=== PATIENT | male | born 1965 | race Caucasian/White ===

== ENCOUNTER 2018-01-13 16:18 | Inpatient (IN) | payer OTHER, SELFPAY ==
[2018-01-13] VITALS (13 sets, daily range): BP systolic 126–164; BP diastolic 58–97; PULSE 72–787; RESP 13–23; TEMP 36.2–37.1; O2SAT 2–100; BMI 25.8; BMI 27.5
--- NOTE | 2018-01-13 16:26 | DI.RAD.S_ITS ---
PROCEDURE: XR CHEST 2V INDICATIONS: chest pain short of breath TECHNIQUE: 2 views of the chest were acquired. COMPARISON: None. FINDINGS: Surgical changes and devices: None. Lungs and pleura: There are low lung volumes. Elevation of the diaphragms appears to be present, which may be related to expiratory technique. Fluid level is seen within the stomach. There is interstitial prominence identified within the lung bases. No lobar consolidation, large effusion, or pneumothorax is evident. Mediastinum: Mediastinal contours are normal. Heart size is normal. Bones and chest wall: No suspicious bony abnormalities. Degenerative changes of the spine are not well characterized. Soft tissues appear unremarkable. IMPRESSION: Mild basilar atelectasis. Superimposed pneumonia is felt to be less likely, but cannot be completely excluded. Dictated by: Daniel Dang M.D. on 01/13/2018 at 15:48 Approved by: Daniel Dang M.D. on 01/13/2018 at 15:52
[2018-01-13 16:50] LABS: Add Manual Diff / Slide Review NO; Basophils Percent Auto 1.3 % (0-2); Eosinophils Percent Auto 3.5 % (2-4); Hematocrit 46.8 % (41-53); Hemoglobin 15.7 g/dL (13.5-17.5); INR 0.9 (0.9-1.3); Lymphocytes Percent Auto 32.1 % (25-40); Mean Corpuscular HGB Conc 33.6 % (30-36); Mean Corpuscular Hemoglobin 30.4 PG (26-34); Mean Corpuscular Volume 90.4 fL (80-100); Neutrophils Absolute Auto 5900 /uL (3000-5900); Neutrophils Percent Auto 55.1 % (50-75); Platelet Count 261 X10^3/uL (150-400); Red Blood Cell Count 5.17 X10^6/uL (4.5-5.9); Red Cell Distribution Width 13.2 % (11.6-14.8); White Blood Cell Count 10.6 X10^3/uL (4.5-11.0)
[2018-01-13 16:53] LABS: PTT Partial Thromboplastin Tim 33 SECONDS (26.4-36.2)
--- NOTE | 2018-01-13 17:02 | ED.CHESTPAIN ---
HPI - Chest Pain General Chief Complaint: Chest Pain Stated Complaint: SOB w/ Chest Pain Time Seen by Provider: 01/13/18 16:25 Source: patient and EMS Mode of arrival: EMS Limitations: no limitations History of Present Illness HPI narrative: Patient is a 52-year-old male who presents with on chest pain and shortness of breath since a.m. this morning. It is constant nonradiating. He feels a lot of pressure in his chest. Is obviously diaphoretic. He denies any productive cough. They are visiting from all organ. He was recently evaluated by a doctor concerned that he may have prostate cancer sounds does PSA elevated but still being worked up. He does not have chest pain any more. MD complaint: chest pain Related Data Home Medications Medication Instructions Recorded Confirmed gabapentin 01/13/18 Allergies Allergy/AdvReac Type Severity Reaction Status Date / Time No Known Drug Allergies Allergy Verified 01/13/18 17:17 PFSH Medical History Chronic back pain (Acute) HTN (hypertension) (Acute) Kidney stone (Acute) Prostate cancer (Acute) Family History Other Heart attack High blood cholesterol Hypertension Social History household members: family Smoking Status: Current every day smoker alcohol intake: never Exam Initial Vital Signs Initial Vital Signs: Vital Signs Temperature 98.1 F 01/13/18 16:26 Pulse Rate 79 01/13/18 16:26 Respiratory Rate 15 01/13/18 16:26 Blood Pressure 152/83 H 01/13/18 16:26 Pulse Oximetry 96 01/13/18 16:26 Const General: cooperative, comfortable, in distress and diaphoretic Nutritional Appearance: average body habitus Other: [facility] Head: normocephalic and atraumatic Ears: external ears normal and TM's normal bilaterally Nose: external nose normal and No nasal discharge Face and sinus: sinuses nontender, face symmetric, no sinus tenderness and No dry mucous membranes Mouth: oral mucosae normal and moist mucous membranes Teeth and gingiva: dentition normal Throat: tonsils normal and uvula midline Resp Effort & Inspection: normal respiratory effort, able to speak in complete sentences, no respiratory distress and no use of accessory muscles Auscultation: clear to auscultation bilaterally, no rales, no rhonchi and no wheezes Cardio Rate: regular rate Rhythm: regular rhythm Heart Sounds: no click, no gallops, no murmurs and no rubs Pulses: normal peripheral pulses GI Inspection: non-distended Palpation: soft, no hepatosplenomegaly, No guarding, No pulsatile mass and No tender Auscultation: normal bowel sounds Skin General: no rashes or lesions noted, No jaundice and No petechiae Neuro General: alert, oriented x3, gait normal and no focal motor deficits Speech: speech normal Course Orders Ordered: ED Orders 01/13/18 16:15 B Type Natriuretic Peptide Stat Complete Blood Count AUTO DIFF Stat Comprehensive Metabolic Panel Stat D Dimer Stat Lipase Stat Partial Thromboplastin Time Stat Prothrombin Time INR Stat Troponin with CK Cardiac Panel Stat 01/13/18 16:25 EKG-12 Lead Stat 01/13/18 16:26 XR chest 2V Stat 01/13/18 17:38 EKG-12 Lead Stat 01/13/18 18:34 Education, smoking cessation ONGOING 01/13/18 18:45 Troponin I Q8H 01/14/18 02:45 Troponin I Q8H Acetaminophen (Tylenol) 650 mg PO Q4HR FRANCESCA Aspirin (Aspirin Ec) 325 mg PO DAILY [facility] Sodium Chloride (Normal Saline 0.9%) 1,000 mls @ 150 mls/hr IV CONT FRANCESCA Last Admin: 01/13/18 17:15 Dose: 150 mls/hr Morphine Sulfate (Morphine) 2 mg IV Q5MIN PRN PRN Reason: Chest Pain Nitroglycerin (Nitrostat) 0.4 mg SL [id number] PRN PRN Reason: Chest Pain Last Admin: 01/13/18 17:29 Dose: 0.4 mg Admin: 01/13/18 17:24 Dose: 0.4 mg Nitroglycerin (Nitrostat) 0.4 mg SL [id number] PRN PRN Reason: Chest Pain Discontinued Medications Albuterol/Ipratropium (Duoneb) 3 ml INH NOW ONE Stop: 01/13/18 17:05 Last Admin: 01/13/18 17:45 Dose: 3 ml Aspirin (Aspirin Chew) 324 mg PO NOW ONE Stop: 01/13/18 16:26 Last Admin: 01/13/18 16:30 Dose: Not Given Vital Signs - 8 hr 01/13/18 16:26 01/13/18 17:10 01/13/18 17:24 Temperature 98.1 F Pulse Rate 79 81 91 H Respiratory Rate 15 20 Blood Pressure 152/83 H 135/82 H Blood Pressure [Left Arm] 135/82 H Pulse Oximetry 96 100 01/13/18 17:29 01/13/18 17:42 01/13/18 17:46 Temperature Pulse Rate 85 81 80 Respiratory Rate 18 23 Blood Pressure 145/89 H Blood Pressure [Left Arm] 126/91 H Pulse Oximetry 2 L 97 01/13/18 18:03 Temperature Pulse Rate 75 Respiratory Rate 13 Blood Pressure Blood Pressure [Left Arm] 144/97 H Pulse Oximetry 98 MDM - Chest Pain Lab Data Result diagrams: 01/13/18 16:15 01/13/18 16:15 Lab Results 01/13/18 01/13/18 01/13/18 Range/Units 16:15 16:15 16:15 WBC 10.6 (4.5-11.0) X10^3/uL RBC 5.17 (4.5-5.9) X10^6/uL Hgb 15.7 (13.5-17.5) g/dL Hct 46.8 (41-53) % MCV 90.4 (80-100) fL MCH 30.4 (26-34) PG MCHC 33.6 (30-36) % RDW 13.2 (11.6-14.8) % Plt Count 261 (150-400) X10^3/uL Neut % (Auto) 55.1 (50-75) % Lymph % (Auto) 32.1 (25-40) % Garrett % (Auto) 8.0 (3-14) % Eos % (Auto) 3.5 (2-4) % Baso % (Auto) 1.3 (0-2) % Neut # (Auto) 5900 (0995-9584) /uL PT 10.0 L (10.1-12.7) SECONDS INR 0.9 (0.9-1.3) APTT 33 (26.4-36.2) SECONDS D-Dimer (<230) ng/mL Sodium 142 (137-145) mmol/L Potassium 3.5 (3.4-5.1) mmol/L Chloride 103 (98-107) mmol/L Carbon Dioxide 27 (22-32) mmol/L BUN 19 (9-20) mg/dL Creatinine 0.80 (0.66-1.25) mg/dL Estimated GFR > 60.0 (>60) mL/min BUN/Creatinine Ratio 23.8 H (6-22) Glucose 76 (70-100) mg/dL Calcium 9.5 (8.4-10.2) mg/dL Total Bilirubin 0.5 (0.2-1.3) mg/dL AST 29 (17-59) IU/L ALT 24 (21-72) IU/L Alkaline Phosphatase 63 (38-126) U/L Total Creatine Kinase 54 L (55-170) U/L Troponin I < 0.012 (0.01-0.034) ng/mL B-Natriuretic Peptide 29.3 (<100) Total Protein 7.2 (6.3-8.2) g/dL Albumin 4.1 (3.5-5.0) g/dL Globulin 3.1 (1.7-4.1) g/dL Albumin/Globulin Ratio 1.3 (1.0-2.8) Lipase 419 H (23-300) U/L 01/13/18 Range/Units 16:15 WBC (4.5-11.0) X10^3/uL RBC (4.5-5.9) X10^6/uL Hgb (13.5-17.5) g/dL Hct (41-53) % MCV (80-100) fL MCH (26-34) PG MCHC (30-36) % RDW (11.6-14.8) % Plt Count (150-400) X10^3/uL Neut % (Auto) (50-75) % Lymph % (Auto) (25-40) % Garrett % (Auto) (3-14) % Eos % (Auto) (2-4) % Baso % (Auto) (0-2) % Neut # (Auto) (7830-5874) /uL PT (10.1-12.7) SECONDS INR (0.9-1.3) APTT (26.4-36.2) SECONDS D-Dimer < 200 (<230) ng/mL Sodium (137-145) mmol/L Potassium (3.4-5.1) mmol/L Chloride (98-107) mmol/L Carbon Dioxide (22-32) mmol/L BUN (9-20) mg/dL Creatinine (0.66-1.25) mg/dL Estimated GFR (>60) mL/min BUN/Creatinine Ratio (6-22) Glucose (70-100) mg/dL Calcium (8.4-10.2) mg/dL Total Bilirubin (0.2-1.3) mg/dL AST (17-59) IU/L ALT (21-72) IU/L Alkaline Phosphatase (38-126) U/L Total Creatine Kinase (55-170) U/L Troponin I (0.01-0.034) ng/mL B-Natriuretic Peptide (<100) Total Protein (6.3-8.2) g/dL Albumin (3.5-5.0) g/dL Globulin (1.7-4.1) g/dL Albumin/Globulin Ratio (1.0-2.8) Lipase (23-300) U/L Imaging Data Chest x-ray: Radiologist's impression: PROCEDURE: XR CHEST 2V INDICATIONS: chest pain short of breath TECHNIQUE: 2 views of the chest were acquired. COMPARISON: None. FINDINGS: Surgical changes and devices: None. Lungs and pleura: There are low lung volumes. Elevation of the diaphragms appears to be present, which may be related to expiratory technique. Fluid level is seen within the stomach. There is interstitial prominence identified within the lung bases. No lobar consolidation, large effusion, or pneumothorax is evident. Mediastinum: Mediastinal contours are normal. Heart size is normal. Bones and chest wall: No suspicious bony abnormalities. Degenerative changes of the spine are not well characterized. Soft tissues appear unremarkable. IMPRESSION: Mild basilar atelectasis. Superimposed pneumonia is felt to be less likely, but cannot be completely excluded. Dictated by: Daniel Dang M.D. on 01/13/2018 at 15:48 Approved by: Daniel Dang M.D. on 01/13/2018 at 15:52 ECG Data Attestation: I personally reviewed and interpreted this ECG as follows: Prior ECG tracings: not available for review Interpretation: EKG 1.: Normal sinus rhythm rate 77 and Q-wave noted in lead 3 and AVF no priors to compare no ST changes EKG 2. Sinus rhythm rate 76 similar to prior is MDM Narrative Medical decision making narrative: Patient initially a of quite diaphoretic with concerning chest pain. He had recurrence of chest pain in the ED was given nitroglycerin 2 in fact which improved his chest pain. He also significant family history both mom and dad are from heart attack before the age of 60. The patient will be placed in observation for further testing. Dr. Villeda has happily accepted and in ED to evaluate Negative D-dimer no definitive diagnosis of cancer of he is not hypoxic. No syncopal episode Discharge Plan Departure Patient Disposition: Admitted As Inpatient Discharge Date/Time: 01/13/18 18:45 Interventions: ED Discharge Assessment Last Done: 01/13/18 18:27 Admit Date/Time: 01/13/18 18:29 Admit Provider: Al Villeda V
[2018-01-13] MEDS: SODIUM CHLORIDE 0.9% 1,000 ML 150 ML IV (17:15)
[2018-01-13] MEDS: NITROGLYCERIN 0.4 MG SL TAB SL ×4 (17:24→22:57)
--- NOTE | 2018-01-13 17:24 | PC.NURSE ---
pt had a sudden onset of chest pain, woke him from sleeping about an 8/10 dr lynne notified, verbal order for nitro.
[2018-01-13 17:29] LABS: Alanine Aminotransferase 24 IU/L (21-72); Albumin 4.1 g/dL (3.5-5.0); Albumin Globulin Ratio 1.3 (1.0-2.8); Alkaline Phosphatase 63 U/L (38-126); Aspartate Aminotransferase 29 IU/L (17-59); BUN Creatinine Ratio 23.8 (6-22); Bilirubin Total 0.5 mg/dL (0.2-1.3); Blood Urea Nitrogen 19 mg/dL (9-20); Calcium 9.5 mg/dL (8.4-10.2); Carbon Dioxide 27 mmol/L (22-32); Chloride 103 mmol/L (98-107); Creatine Kinase 54 U/L (55-170); Estimated Glomerular Filt Rate > 60.0 mL/min (>60); Globulin 3.1 g/dL (1.7-4.1); Glucose 76 mg/dL (70-100); HEMOLYSIS 20 (0-50); Lipase 419 U/L (23-300); Potassium 3.5 mmol/L (3.4-5.1); Sodium 142 mmol/L (137-145); Total Protein 7.2 g/dL (6.3-8.2)
[2018-01-13 17:37] LABS: B Type Natriuretic Peptide 29.3 (<100)
[2018-01-13 17:41] LABS: Troponin I < 0.012 ng/mL (0.01-0.034)
[2018-01-13] MEDS: ALBUTEROL/IPRATROPIUM 3 ML AMPUL INH (17:45)
[2018-01-13 18:03] LABS: D Dimer < 200 ng/mL (<230)
--- NOTE | 2018-01-13 18:23 | PM.HP.1 ---
History of Present Illness Date Patient Seen: 01/13/18 Time Patient Seen: 18:10 Chief complaint: SOB w/ Chest Pain Narrative: The patient states that he woke up this morning with 10/10 central chest pressure with associated shortness of breath and diaphoresis, lasting several hours, and worsening prompting emergency department visit today. He has never had similar symptoms though he states over the past few months he has had progressive shortness of breath with exertion. He has been told his PSA is elevated at 7.5 and has an outpatient urologic appointment scheduled in January. He has also been told he is anemic with an elevated white blood count (not apparent on admission labs today). Cardiac risk factors include ongoing tobacco use, very positive family history and undiagnosed hypertension noted in the emergency department with LVH by EKG. 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 He lives with a daughter locally. He smokes a 3rd of a pack of cigarettes daily and denies alcohol use. He smokes marijuana occasionally and denies drug use. Family history: His father developed coronary disease at age 40, having 3 more heart attacks and a stroke, dying at age 73 of skin cancer. His mother in her 80s of stomach cancer though developed coronary artery disease at age 55. Patient History Medical History Prostate cancer (Acute) Family & Social History Safety & Behavioral: Feels Safe in Current Yes Environment Tobacco & Substance use: Smoking Status Current every day smoker alcohol intake frequency 0-2 drinks per day Substance Use Type does not use Meds Home Medications Medication Instructions Recorded Confirmed Type No Known Home Medications 01/13/18 01/13/18 History Allergies Allergy/AdvReac Type Severity Reaction Status Date / Time No Known Drug Allergies Allergy Verified 01/13/18 17:17 Review of Systems Review of Systems All systems reviewed & are unremarkable except as noted in HPI and below Exam Vital Signs (past 8 hours): Vital Signs - 8 hr 01/13/18 16:26 01/13/18 17:10 01/13/18 17:24 Temperature 98.1 F Pulse Rate 79 81 91 H Respiratory Rate 15 20 Blood Pressure 152/83 H 135/82 H Blood Pressure [Left Arm] 135/82 H Pulse Oximetry 96 100 01/13/18 17:29 01/13/18 17:42 01/13/18 17:46 Temperature Pulse Rate 85 81 80 Respiratory Rate 18 23 Blood Pressure 145/89 H Blood Pressure [Left Arm] 126/91 H Pulse Oximetry 2 L 97 01/13/18 18:03 Temperature Pulse Rate 75 Respiratory Rate 13 Blood Pressure Blood Pressure [Left Arm] 144/97 H Pulse Oximetry 98 Pulse Oximetry 98 Oxygen Delivery Method Nasal Cannula Oxygen Flow Rate 2 Narrative Exam Narrative: General: Pleasant male, appears older than stated age, in no apparent distress HEENT: Pupils equal round reactive, extraocular movements intact Neck: Supple Lungs: Clear to auscultation Cardiac: Regular rate and rhythm without appreciable murmur Abdomen: Soft, nontender, nondistended Extremities: Without edema Neurologic: Alert, oriented, full upper and lower motor strength, normal sensation, no focal deficits Dermatologic: No rash or skin lesions Objective Imaging Chest x-ray: Radiologist's impression: Mild basilar atelectasis. Superimposed pneumonia is felt to be less likely, but cannot be completely excluded. Labs Result Diagrams: 01/13/18 16:15 01/13/18 16:15 Labs: Laboratory Results - last 24 hr 01/13/18 01/13/18 01/13/18 16:15 16:15 16:15 WBC 10.6 RBC 5.17 Hgb 15.7 Hct 46.8 MCV 90.4 MCH 30.4 MCHC 33.6 RDW 13.2 Plt Count 261 Neut % (Auto) 55.1 Lymph % (Auto) 32.1 Hitchcock % (Auto) 8.0 Eos % (Auto) 3.5 Baso % (Auto) 1.3 Neut # (Auto) 5900 PT 10.0 L INR 0.9 APTT 33 D-Dimer Sodium 142 Potassium 3.5 Chloride 103 Carbon Dioxide 27 BUN 19 Creatinine 0.80 Estimated GFR > 60.0 BUN/Creatinine Ratio 23.8 H Glucose 76 Calcium 9.5 Total Bilirubin 0.5 AST 29 ALT 24 Alkaline Phosphatase 63 Total Creatine Kinase 54 L Troponin I < 0.012 B-Natriuretic Peptide 29.3 Total Protein 7.2 Albumin 4.1 Globulin 3.1 Albumin/Globulin Ratio 1.3 Lipase 419 H 01/13/18 16:15 WBC RBC Hgb Hct MCV MCH MCHC RDW Plt Count Neut % (Auto) Lymph % (Auto) Hitchcock % (Auto) Eos % (Auto) Baso % (Auto) Neut # (Auto) PT INR APTT D-Dimer < 200 Sodium Potassium Chloride Carbon Dioxide BUN Creatinine Estimated GFR BUN/Creatinine Ratio Glucose Calcium Total Bilirubin AST ALT Alkaline Phosphatase Total Creatine Kinase Troponin I B-Natriuretic Peptide Total Protein Albumin Globulin Albumin/Globulin Ratio Lipase Assessment & Plan Plan: Assessment/Plan Narrative: 1. Chest pain. Rule out coronary artery disease, noting significant positive family history. Admit to telemetry, observation, monitor serial cardiac enzymes, and obtain stress testing tomorrow if unrevealing. Otherwise, consider Cardiology consultation as indicated. Check lipids. 2. Chronic tobacco use. Smoking cessation is advised. 3. Hypertension with left ventricular hypertrophy. Monitor and address prior to discharge pending above evaluation. 4. Elevated PSA. Outpatient evaluation pending for evaluation of possible prostate cancer. 5. Disposition: Admit to observation status. 6. Code status: Full
--- NOTE | 2018-01-13 18:33 | P.HP_ITS ---
History of Present Illness Date Patient Seen: 01/13/18 Time Patient Seen: 18:10 Chief complaint: SOB w/ Chest Pain Narrative: The patient states that he woke up this morning with 10/10 central chest pressure with associated shortness of breath and diaphoresis, lasting several hours, and worsening prompting emergency department visit today. He has never had similar symptoms though he states over the past few months he has had progressive shortness of breath with exertion. He has been told his PSA is elevated at 7.5 and has an outpatient urologic appointment scheduled in January. He has also been told he is anemic with an elevated white blood count (not apparent on admission labs today). Cardiac risk factors include ongoing tobacco use, very positive family history and undiagnosed hypertension noted in the emergency department with LVH by EKG. 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 He lives with a daughter locally. He smokes a 3rd of a pack of cigarettes daily and denies alcohol use. He smokes marijuana occasionally and denies drug use. Family history: His father developed coronary disease at age 40, having 3 more heart attacks and a stroke, dying at age 73 of skin cancer. His mother in her 80s of stomach cancer though developed coronary artery disease at age 55. Patient History Medical History Prostate cancer (Acute) Family & Social History Safety & Behavioral: Feels Safe in Current Yes Environment Tobacco & Substance use: Smoking Status Current every day smoker alcohol intake frequency 0-2 drinks per day Substance Use Type does not use Meds Home Medications Medication Instructions Recorded Confirmed Type No Known Home Medications 01/13/18 01/13/18 History Allergies Allergy/AdvReac Type Severity Reaction Status Date / Time No Known Drug Allergies Allergy Verified 01/13/18 17:17 Review of Systems Review of Systems All systems reviewed & are unremarkable except as noted in HPI and below Exam Vital Signs (past 8 hours): Vital Signs - 8 hr 3 01/13/18 16:26 01/13/18 17:10 01/13/18 17:24 Temperature 98.1 F Pulse Rate 79 81 91 H Respiratory Rate 15 20 Blood Pressure 152/83 H 135/82 H Blood Pressure [Left Arm] 135/82 H Pulse Oximetry 96 100 3 01/13/18 17:29 01/13/18 17:42 01/13/18 17:46 Temperature Pulse Rate 85 81 80 Respiratory Rate 18 23 Blood Pressure 145/89 H Blood Pressure [Left Arm] 126/91 H Pulse Oximetry 2 L 97 3 01/13/18 18:03 Temperature Pulse Rate 75 Respiratory Rate 13 Blood Pressure Blood Pressure [Left Arm] 144/97 H Pulse Oximetry 98 Pulse Oximetry 98 Oxygen Delivery Method Nasal Cannula Oxygen Flow Rate 2 Narrative Exam Narrative: General: Pleasant male, appears older than stated age , in no apparent distress HEENT: Pupils equal round reactive, extraocular movements intact Neck: Supple Lungs: Clear to auscultation Cardiac: Regular rate and rhythm without appreciable murmur Abdomen: Soft, nontender, nondistended Extremities: Without edema Neurologic: Alert, oriented, full upper and lower motor strength, normal sensation, no focal deficits Dermatologic: No rash or skin lesions Objective Imaging Chest x-ray: Radiologist's impression: Mild basilar atelectasis. Superimposed pneumonia is felt to be less likely, but cannot be completely excluded. Labs Result Diagrams: 01/13/18 16:15 01/13/18 16:15 Labs: Laboratory Results - last 24 hr 01/13/18 01/13/18 01/13/18 16:15 16:15 16:15 WBC 10.6 RBC 5.17 Hgb 15.7 Hct 46.8 MCV 90.4 MCH 30.4 MCHC 33.6 RDW 13.2 Plt Count 261 Neut % (Auto) 55.1 Lymph % (Auto) 32.1 Nash % (Auto) 8.0 Eos % (Auto) 3.5 Baso % (Auto) 1.3 Neut # (Auto) 5900 PT 10.0 L INR 0.9 APTT 33 D-Dimer Sodium 142 Potassium 3.5 Chloride 103 Carbon Dioxide 27 BUN 19 Creatinine 0.80 Estimated GFR > 60.0 BUN/Creatinine Ratio 23.8 H Glucose 76 Calcium 9.5 Total Bilirubin 0.5 AST 29 ALT 24 Alkaline Phosphatase 63 Total Creatine Kinase 54 L Troponin I < 0.012 B-Natriuretic Peptide 29.3 Total Protein 7.2 Albumin 4.1 Globulin 3.1 Albumin/Globulin Ratio 1.3 Lipase 419 H 01/13/18 16:15 WBC RBC Hgb Hct MCV MCH MCHC RDW Plt Count Neut % (Auto) Lymph % (Auto) Nash % (Auto) Eos % (Auto) Baso % (Auto) Neut # (Auto) PT INR APTT D-Dimer < 200 Sodium Potassium Chloride Carbon Dioxide BUN Creatinine Estimated GFR BUN/Creatinine Ratio Glucose Calcium Total Bilirubin AST ALT Alkaline Phosphatase Total Creatine Kinase Troponin I B-Natriuretic Peptide Total Protein Albumin Globulin Albumin/Globulin Ratio Lipase Assessment & Plan Plan: Assessment/Plan Narrative: 1. Chest pain. Rule out coronary artery disease, noting significant positive family history. Admit to telemetry, observation, monitor serial cardiac enzymes , and obtain stress testing tomorrow if unrevealing. Otherwise, consider Cardiology consultation as indicated. Check lipids. 2. Chronic tobacco use. Smoking cessation is advised. 3. Hypertension with left ventricular hypertrophy. Monitor and address prior to discharge pending above evaluation. 4. Elevated PSA. Outpatient evaluation pending for evaluation of possible prostate cancer. 5. Disposition: Admit to observation status. 6. Code status: Full
--- NOTE | 2018-01-13 18:55 | PC.NURSE ---
Pt admitted to [facility]. A/O. DENIES ANY CHEST PAIN. TELE ON/ICU NOTIFIED TO MONITOR. DAUGHTER PRESENT AT BEDSIDE AND BROUGHT IN GLASSES/PHONE. PT NORMALLY WEARS TOP/BOTTOM DENTURES, BUT DID NOT BRING THEM IN TODAY. ADVANCE DIRECTIVE PAMPHLET AT BEDSIDE. ORIENTED TO ROOM/CALL LIGHT. INFORMED PT TO CALL PRIOR TO GETTING OUT OF BED SINCE NEW MEDS WERE GIVEN IN ER. PT VERBALLY CONFIRMS UNDERSTANDING.
[2018-01-13] MEDS: ACETAMINOPHEN 325 MG TABLET 650 MG PO (21:48)
[2018-01-13 22:11] LABS: Troponin I < 0.012 ng/mL (0.01-0.034)
[2018-01-13 22:39] LABS: Cholesterol 128 mg/dL (140-199); HDL Cholesterol 54 mg/dL (40-60); LDL Cholesterol Calculated 62 mg/dL (<100); Triglycerides 61 mg/dL (35-150)
[2018-01-14] VITALS (9 sets, daily range): BP systolic 133–153; BP diastolic 80–93; PULSE 68–82; RESP 12–18; TEMP 36.4–36.9; O2SAT 95–99
[2018-01-14] MEDS: ACETAMINOPHEN 325 MG TABLET 650 MG PO ×5 (02:54→16:54)
[2018-01-14 03:47] LABS: Troponin I < 0.012 ng/mL (0.01-0.034)
--- NOTE | 2018-01-14 06:37 | PC.NURSE ---
Neno was asleep at change of shift, denied pain at assessment, on telemetry w/ RSR, perfusion and pulses both WNL, sats 97-99 % on room air. Blood draw at 0245, troponin level unchanged. His sister, pam called for condition update at 0130, informed that he is sleeping, stable and without chest discomfort. She offered FH that father had 'heart attack' in 50's. He was awake at 0600, given his tylenol and encouraged to eat to reduce gastric irritation, consumed applesauce.
[2018-01-14] MEDS: ASPIRIN EC 325 MG TABLET PO (09:43)
--- NOTE | 2018-01-14 15:40 | CM.DANOTE ---
Discharge Planning/Care Management CM Discharge Assessment Start: 01/14/18 15:38 Freq: Status: Active Protocol: Document 01/14/18 15:38 TBD (Rec: 01/14/18 15:40 TBD [email or web address]) Discharge Planning Assessment History Provided By Patient Has Patient been admitted in last 30 No days? Is this patient on Medicare? No Is the admit diagnosis the same? No Prior Living Arrangements House Household Members family Type of transporation used prior to Drives own vehicle admit Independent with ADL's Yes Is patient alert and oriented? Yes Caregiver for Another No Clinicals Faxed No Discharge Plan Home Transportation Arrangement Daughter plans to cloth picker patient when discharged; Review Status In Process Next Review Type Discharge Review Document 01/14/18 15:39 TBD (Rec: 01/14/18 15:40 TBD [email or web address]) Discharge Planning Assessment History Provided By Patient Prior Living Arrangements House Household Members family Document 01/14/18 15:39 TBD (Rec: 01/14/18 15:40 TBD [email or web address]) Discharge Planning Assessment History Provided By Patient Prior Living Arrangements House Household Members family Document 01/14/18 15:39 TBD (Rec: 01/14/18 15:40 TBD [email or web address]) Discharge Planning Assessment History Provided By Patient Prior Living Arrangements House Household Members family Document 01/14/18 15:40 TBD (Rec: 01/14/18 15:40 TBD [email or web address]) Discharge Planning Assessment History Provided By Patient Prior Living Arrangements House Household Members family DC Assessment: Met at bedside with patient, introduced myself and role of dc community development planner; Patient awaiting cardiac stress test between 2 - 4pm today and will likely be discharged with instrutions to follow-up with a machine overhauler; Patient expressed no needs; Plan: Home with family, no needs;
--- NOTE | 2018-01-14 16:33 | PM.PN.1 ---
Subjective Date Patient Seen: 01/14/18 Time Patient Seen: 09:00 Interval history: The patient denies chest pain overnight. He reports having shortness of breath with exertion, but not since hospital admission. Exam Vital Signs (past 8 hours): Vital Signs - 8 hr 01/14/18 11:35 Temperature 98.2 F Pulse Rate 71 Respiratory Rate 16 Blood Pressure 148/92 H Pulse Oximetry 97 Pulse Oximetry 97 Oxygen Delivery Method Room Air Oxygen Flow Rate 0 Narrative Exam Narrative: General: Pleasant male, appears older than stated age, in no apparent distress HEENT: Pupils equal round reactive, extraocular movements intact Neck: Supple Lungs: Clear to auscultation Cardiac: Regular rate and rhythm without appreciable murmur Abdomen: Soft, nontender, nondistended Extremities: Without edema Neurologic: Alert, oriented, full upper and lower motor strength, normal sensation, no focal deficits Dermatologic: No rash or skin lesions Objective Labs Result Diagrams: 01/13/18 16:15 01/13/18 16:15 Labs: Laboratory Results - last 24 hr 01/13/18 01/13/18 01/13/18 16:15 16:15 16:15 WBC 10.6 RBC 5.17 Hgb 15.7 Hct 46.8 MCV 90.4 MCH 30.4 MCHC 33.6 RDW 13.2 Plt Count 261 Neut % (Auto) 55.1 Lymph % (Auto) 32.1 [place] % (Auto) 8.0 Eos % (Auto) 3.5 Baso % (Auto) 1.3 Neut # (Auto) 5900 PT 10.0 L INR 0.9 APTT 33 D-Dimer Sodium 142 Potassium 3.5 Chloride 103 Carbon Dioxide 27 BUN 19 Creatinine 0.80 Estimated GFR > 60.0 BUN/Creatinine Ratio 23.8 H Glucose 76 Calcium 9.5 Total Bilirubin 0.5 AST 29 ALT 24 Alkaline Phosphatase 63 Total Creatine Kinase 54 L Troponin I < 0.012 B-Natriuretic Peptide 29.3 Total Protein 7.2 Albumin 4.1 Globulin 3.1 Albumin/Globulin Ratio 1.3 Triglycerides Cholesterol LDL Cholesterol, Calc HDL Cholesterol Lipase 419 H 01/13/18 01/13/18 01/13/18 16:15 21:16 21:16 WBC RBC Hgb Hct MCV MCH MCHC RDW Plt Count Neut % (Auto) Lymph % (Auto) [place] % (Auto) Eos % (Auto) Baso % (Auto) Neut # (Auto) PT INR APTT D-Dimer < 200 Sodium Potassium Chloride Carbon Dioxide BUN Creatinine Estimated GFR BUN/Creatinine Ratio Glucose Calcium Total Bilirubin AST ALT Alkaline Phosphatase Total Creatine Kinase Troponin I < 0.012 B-Natriuretic Peptide Total Protein Albumin Globulin Albumin/Globulin Ratio Triglycerides 61 Cholesterol 128 L LDL Cholesterol, Calc 62 HDL Cholesterol 54 Lipase 01/14/18 02:48 WBC RBC Hgb Hct MCV MCH MCHC RDW Plt Count Neut % (Auto) Lymph % (Auto) [place] % (Auto) Eos % (Auto) Baso % (Auto) Neut # (Auto) PT INR APTT D-Dimer Sodium Potassium Chloride Carbon Dioxide BUN Creatinine Estimated GFR BUN/Creatinine Ratio Glucose Calcium Total Bilirubin AST ALT Alkaline Phosphatase Total Creatine Kinase Troponin I < 0.012 B-Natriuretic Peptide Total Protein Albumin Globulin Albumin/Globulin Ratio Triglycerides Cholesterol LDL Cholesterol, Calc HDL Cholesterol Lipase Assessment & Plan Plan: Assessment/Plan Narrative: 1. Chest pain. Dilated cardiomyopathy with EF of 34% on nuclear medicine stress testing. Rule out coronary artery disease, noting significant positive family history. Evaluate as detailed below. 2. Dilated cardiomyopathy. Possibly ischemic. He will need a resting study to complete this evaluation. Check TSH. Obtain echocardiogram. Monitor ongoing serial cardiac enzymes on telemetry. Start carvedilol 3.125 mg twice daily and lisinopril 2.5 mg daily. BNP was normal on admission and will re-confirmed tomorrow. No overt evidence of congestive heart failure. 2. Chronic tobacco use. Smoking cessation is advised. 3. Hypertension with left ventricular hypertrophy. Monitor and address prior to discharge pending above evaluation. 4. Elevated PSA. Outpatient evaluation pending for evaluation of possible prostate cancer. 5. Disposition: Change to inpatient status 01/14/2018. He will need outpatient Cardiology consultation. 6. Code status: Full code. Quality VTE Deep Vein Thrombosis/Pulmonary Embolism Present on Admission: No
--- NOTE | 2018-01-14 16:38 | P.PN_ITS ---
Subjective Date Patient Seen: 01/14/18 Time Patient Seen: 09:00 Interval history: The patient denies chest pain overnight. He reports having shortness of breath with exertion, but not since hospital admission. Exam Vital Signs (past 8 hours): Vital Signs - 8 hr 3 01/14/18 11:35 Temperature 98.2 F Pulse Rate 71 Respiratory Rate 16 Blood Pressure 148/92 H Pulse Oximetry 97 Pulse Oximetry 97 Oxygen Delivery Method Room Air Oxygen Flow Rate 0 Narrative Exam Narrative: General: Pleasant male, appears older than stated age , in no apparent distress HEENT: Pupils equal round reactive, extraocular movements intact Neck: Supple Lungs: Clear to auscultation Cardiac: Regular rate and rhythm without appreciable murmur Abdomen: Soft, nontender, nondistended Extremities: Without edema Neurologic: Alert, oriented, full upper and lower motor strength, normal sensation, no focal deficits Dermatologic: No rash or skin lesions Objective Labs Result Diagrams: 01/13/18 16:15 01/13/18 16:15 Labs: Laboratory Results - last 24 hr 01/13/18 01/13/18 01/13/18 16:15 16:15 16:15 WBC 10.6 RBC 5.17 Hgb 15.7 Hct 46.8 MCV 90.4 MCH 30.4 MCHC 33.6 RDW 13.2 Plt Count 261 Neut % (Auto) 55.1 Lymph % (Auto) 32.1 [place] % (Auto) 8.0 Eos % (Auto) 3.5 Baso % (Auto) 1.3 Neut # (Auto) 5900 PT 10.0 L INR 0.9 APTT 33 D-Dimer Sodium 142 Potassium 3.5 Chloride 103 Carbon Dioxide 27 BUN 19 Creatinine 0.80 Estimated GFR > 60.0 BUN/Creatinine Ratio 23.8 H Glucose 76 Calcium 9.5 Total Bilirubin 0.5 AST 29 ALT 24 Alkaline Phosphatase 63 Total Creatine Kinase 54 L Troponin I < 0.012 B-Natriuretic Peptide 29.3 Total Protein 7.2 Albumin 4.1 Globulin 3.1 Albumin/Globulin Ratio 1.3 Triglycerides Cholesterol LDL Cholesterol, Calc HDL Cholesterol Lipase 419 H 01/13/18 01/13/18 01/13/18 16:15 21:16 21:16 WBC RBC Hgb Hct MCV MCH MCHC RDW Plt Count Neut % (Auto) Lymph % (Auto) [place] % (Auto) Eos % (Auto) Baso % (Auto) Neut # (Auto) PT INR APTT D-Dimer < 200 Sodium Potassium Chloride Carbon Dioxide BUN Creatinine Estimated GFR BUN/Creatinine Ratio Glucose Calcium Total Bilirubin AST ALT Alkaline Phosphatase Total Creatine Kinase Troponin I < 0.012 B-Natriuretic Peptide Total Protein Albumin Globulin Albumin/Globulin Ratio Triglycerides 61 Cholesterol 128 L LDL Cholesterol, Calc 62 HDL Cholesterol 54 Lipase 01/14/18 02:48 WBC RBC Hgb Hct MCV MCH MCHC RDW Plt Count Neut % (Auto) Lymph % (Auto) [place] % (Auto) Eos % (Auto) Baso % (Auto) Neut # (Auto) PT INR APTT D-Dimer Sodium Potassium Chloride Carbon Dioxide BUN Creatinine Estimated GFR BUN/Creatinine Ratio Glucose Calcium Total Bilirubin AST ALT Alkaline Phosphatase Total Creatine Kinase Troponin I < 0.012 B-Natriuretic Peptide Total Protein Albumin Globulin Albumin/Globulin Ratio Triglycerides Cholesterol LDL Cholesterol, Calc HDL Cholesterol Lipase Assessment & Plan Plan: Assessment/Plan Narrative: 1. Chest pain. Dilated cardiomyopathy with EF of 34% on nuclear medicine stress testing. Rule out coronary artery disease, noting significant positive family history. Evaluate as detailed below. 2. Dilated cardiomyopathy. Possibly ischemic. He will need a resting study to complete this evaluation. Check TSH. Obtain echocardiogram. Monitor ongoing serial cardiac enzymes on telemetry. Start carvedilol 3.125 mg twice daily and lisinopril 2.5 mg daily. BNP was normal on admission and will re- confirmed tomorrow. No overt evidence of congestive heart failure. 2. Chronic tobacco use. Smoking cessation is advised. 3. Hypertension with left ventricular hypertrophy. Monitor and address prior to discharge pending above evaluation. 4. Elevated PSA. Outpatient evaluation pending for evaluation of possible prostate cancer. 5. Disposition: Change to inpatient status 01/14/2018. He will need outpatient Cardiology consultation. 6. Code status: Full code. Quality VTE Deep Vein Thrombosis/Pulmonary Embolism Present on Admission: No
[2018-01-14] MEDS: LISINOPRIL 5 MG TABLET 2.5 MG PO (16:54)
[2018-01-14] MEDS: ENOXAPARIN 40 MG/0.4 ML SYRINGE SUBCUT (17:09)
[2018-01-14] MEDS: CARVEDILOL 3.125 MG TABLET PO (22:06)
[2018-01-15] VITALS (10 sets, daily range): BP systolic 138–159; BP diastolic 83–102; PULSE 72–121; RESP 12–18; TEMP 35.7–37; O2SAT 96–98
[2018-01-15] MEDS: ACETAMINOPHEN 325 MG TABLET 650 MG PO ×4 (00:27→14:25)
--- NOTE | 2018-01-15 06:34 | PC.NURSE ---
Neno has been stable throughout past 8 1/2 hours, pain free, receiving acetaminophen 650 mg every 4 hours. At 0100 he was able to consume pudding and apple juice. He denied pain throughout night, has been independent in the room, and continuously monitored, RSR. He denies side effects to new medication, lisinopril and coreg.
[2018-01-15 06:42] LABS: BUN Creatinine Ratio 24.3 (6-22); Blood Urea Nitrogen 17 mg/dL (9-20); Calcium 9.1 mg/dL (8.4-10.2); Carbon Dioxide 26 mmol/L (22-32); Chloride 105 mmol/L (98-107); Estimated Glomerular Filt Rate > 60.0 mL/min (>60); Glucose 92 mg/dL (70-100); HEMOLYSIS < 15 (0-50); Magnesium 1.9 mg/dL (1.6-2.3); Potassium 4.3 mmol/L (3.4-5.1); Sodium 138 mmol/L (137-145)
[2018-01-15 06:51] LABS: B Type Natriuretic Peptide 78.4 (<100)
[2018-01-15 06:54] LABS: Troponin I < 0.012 ng/mL (0.01-0.034)
[2018-01-15] MEDS: CARVEDILOL 3.125 MG TABLET PO (09:01)
[2018-01-15] MEDS: ASPIRIN EC 325 MG TABLET PO (09:01)
[2018-01-15] MEDS: ENOXAPARIN 40 MG/0.4 ML SYRINGE SUBCUT (09:02)
[2018-01-15] MEDS: LISINOPRIL 5 MG TABLET 2.5 MG PO (09:02)
--- NOTE | 2018-01-15 12:54 | PC.NURSE ---
Patient is in need of a resting test, but the radiology team is unavailable on weekends (Jorge mentioned outpatient referral). Patient will have an echo completed today with possibilities of DC today. Patient hypertensive with BP's of 155/99 and 138/94. Patient on day two of new BP medications. Utilizing manual cuff. Tele reading SR. Patient has denied pain all shift and receptive to treatment.
--- NOTE | 2018-01-15 14:12 | CM.DPC ---
Checked in with patient this morning, patient failed the cardiac stress test that was performed yesterday and is now referred for a resting study to complete the evaluation; per nursing, no one is available on the weekends to perform resting study so will likely be discharged to home with an outpatient referral; Patient is aware he may be discharged with a referral to come back for the resting portion of the test; DC Plan: Home with family. Daughter will provide transportation when patient discharged; No additional questions or needs identified during assessment; DC planning will continue to follow if needs arise; Discharge Planning/Care Management CM Discharge Assessment Start: 01/14/18 15:38 Freq: Status: Active Protocol: Document 01/14/18 15:38 TBD (Rec: 01/14/18 15:40 TBD [email or web address]) Discharge Planning Assessment History Provided By Patient Has Patient been admitted in last 30 No days? Is this patient on Medicare? No Is the admit diagnosis the same? No Prior Living Arrangements House Household Members family Type of transporation used prior to Drives own vehicle admit Independent with ADL's Yes Is patient alert and oriented? Yes Caregiver for Another No Clinicals Faxed No Discharge Plan Home Transportation Arrangement Daughter plans to slat pickler patient when discharged; Review Status In Process Next Review Type Discharge Review Document 01/14/18 15:39 TBD (Rec: 01/14/18 15:40 TBD [facility]) Discharge Planning Assessment History Provided By Patient Prior Living Arrangements House Household Members family Document 01/14/18 15:39 TBD (Rec: 01/14/18 15:40 TBD [email or web address]) Discharge Planning Assessment History Provided By Patient Prior Living Arrangements House Household Members family Document 01/14/18 15:39 TBD (Rec: 01/14/18 15:40 TBD [email or web address]) Discharge Planning Assessment History Provided By Patient Prior Living Arrangements House Household Members family Document 01/14/18 15:40 TBD (Rec: 01/14/18 15:40 TBD [email or web address]) Discharge Planning Assessment History Provided By Patient Prior Living Arrangements House Household Members family Document 01/15/18 14:11 TBD (Rec: 01/15/18 14:12 TBD [facility]) Discharge Planning Assessment History Provided By Patient Has Patient been admitted in last 30 No days? Is this patient on Medicare? No Is the admit diagnosis the same? No Prior Living Arrangements House Household Members family Type of transporation used prior to Drives own vehicle admit Independent with ADL's Yes Is patient alert and oriented? Yes Caregiver for Another No Clinicals Faxed No Discharge Plan Home Transportation Arrangement Daughter plans to slat pickler patient when discharged; Review Status In Process Next Review Type Discharge Review
--- NOTE | 2018-01-15 16:34 | PM.DS.1 ---
History of Present Illness Chief complaint: SOB w/ Chest Pain Discharge Providers Date of admission: 01/13/18 18:29 Discharge provider: Bobby Patel MD Summary Discharge Diagnosis: One. Chest pain myocardial infarction ruled out 2. Possible dilated cardiomyopathy 3. Chronic tobacco use 4. Hypertension and left ventricular hypertrophy 5. Elevated PSA Hospital Course: Patient presented with chest pain troponins were not elevated nuclear study was done and a resting study is pending to get a final reading on that the nuclear study put his ejection fraction at 34% however 2D echo showed near normal ejection fraction final reading on the echo also pending. He was started on carvedilol and lisinopril his BNP has been normal. No symptoms or signs of heart failure. His workup is still in progress he will complete the nuclear resting study on Wednesday. He will follow up with primary care 1-2 weeks. Status at Discharge Functional status at discharge: independent ambulation Overall status at discharge: patient is back to baseline Time Spent with Patient Greater than 30 minutes Exam Vital Signs (past 8 hours): Vital Signs - 8 hr 01/15/18 09:00 01/15/18 09:01 01/15/18 09:02 Temperature Pulse Rate 121 H 121 H Respiratory Rate Blood Pressure 155/99 H 155/99 H Pulse Oximetry 96 01/15/18 09:03 01/15/18 11:50 01/15/18 12:10 Temperature 97.5 F L Pulse Rate 78 73 Respiratory Rate 16 Blood Pressure 159/102 H 138/94 H Pulse Oximetry 96 97 01/15/18 16:00 Temperature 98.6 F Pulse Rate 72 Respiratory Rate 16 Blood Pressure 141/83 H Pulse Oximetry 97 Pulse Oximetry 97 Oxygen Delivery Method Room Air Oxygen Flow Rate 0 Objective Labs Result Diagrams: 01/13/18 16:15 01/15/18 06:25 Labs: Laboratory Results - last 24 hr 01/15/18 01/15/18 01/15/18 06:25 06:25 06:25 Sodium 138 Potassium 4.3 Chloride 105 Carbon Dioxide 26 BUN 17 Creatinine 0.70 Estimated GFR > 60.0 BUN/Creatinine Ratio 24.3 H Glucose 92 Calcium 9.1 Magnesium 1.9 Troponin I < 0.012 B-Natriuretic Peptide 78.4 TSH 1.40 Discharge Plan Discharge Plan Patient Disposition: Home, Self-Care Provider Discharge Instructions Diet: Diet as Tolerated Other treatments: return for resting nuclear study on Wednesday Discharge Data Attending Provider: Al Villeda V Admit Date/Time: 01/13/18 18:29 Quality VTE Deep Vein Thrombosis/Pulmonary Embolism Present on Admission: No
--- NOTE | 2018-01-15 16:37 | P.DS_ITS ---
History of Present Illness Chief complaint: SOB w/ Chest Pain Discharge Providers Date of admission: 01/13/18 18:29 Discharge provider: Bobby Patel MD Summary Discharge Diagnosis: One. Chest pain myocardial infarction ruled out 2. Possible dilated cardiomyopathy 3. Chronic tobacco use 4. Hypertension and left ventricular hypertrophy 5. Elevated PSA Hospital Course: Patient presented with chest pain troponins were not elevated nuclear study was done and a resting study is pending to get a final reading on that the nuclear study put his ejection fraction at 34% however 2D echo showed near normal ejection fraction final reading on the echo also pending. He was started on carvedilol and lisinopril his BNP has been normal. No symptoms or signs of heart failure. His workup is still in progress he will complete the nuclear resting study on Wednesday. He will follow up with primary care 1-2 weeks. Status at Discharge Functional status at discharge: independent ambulation Overall status at discharge: patient is back to baseline Time Spent with Patient Greater than 30 minutes Exam Vital Signs (past 8 hours): Vital Signs - 8 hr 3 01/15/18 09:00 01/15/18 09:01 01/15/18 09:02 Temperature Pulse Rate 121 H 121 H Respiratory Rate Blood Pressure 155/99 H 155/99 H Pulse Oximetry 96 3 01/15/18 09:03 01/15/18 11:50 01/15/18 12:10 Temperature 97.5 F L Pulse Rate 78 73 Respiratory Rate 16 Blood Pressure 159/102 H 138/94 H Pulse Oximetry 96 97 3 01/15/18 16:00 Temperature 98.6 F Pulse Rate 72 Respiratory Rate 16 Blood Pressure 141/83 H Pulse Oximetry 97 Pulse Oximetry 97 Oxygen Delivery Method Room Air Oxygen Flow Rate 0 Objective Labs Result Diagrams: 01/13/18 16:15 01/15/18 06:25 Labs: Laboratory Results - last 24 hr 01/15/18 01/15/18 01/15/18 06:25 06:25 06:25 Sodium 138 Potassium 4.3 Chloride 105 Carbon Dioxide 26 BUN 17 Creatinine 0.70 Estimated GFR > 60.0 BUN/Creatinine Ratio 24.3 H Glucose 92 Calcium 9.1 Magnesium 1.9 Troponin I < 0.012 B-Natriuretic Peptide 78.4 TSH 1.40 Discharge Plan Discharge Plan Patient Disposition: Home, Self-Care Provider Discharge Instructions Diet: Diet as Tolerated Other treatments: return for resting nuclear study on Wednesday Discharge Data Attending Provider: Al Villeda V Admit Date/Time: 01/13/18 18:29 Quality VTE Deep Vein Thrombosis/Pulmonary Embolism Present on Admission: No
--- NOTE | 2018-01-17 15:09 | DI.NM.S_ITS ---
DATE OF SERVICE: 01/14/2018 PROCEDURE: Exercise perfusion study. INDICATIONS: Chest pain with hypertension, smoking, family history of coronary artery disease. RADIOPHARMACEUTICAL: 22.4 mCi technetium-99m Myoview IV was injected at stress and 24.8 mCi technetium-99m Myoview IV was injected at rest. CARDIAC STRESS: Patient underwent exercise perfusion study under the supervision of an attending staff. He walked on Cassius protocol for 7 minutes 01 seconds and achieved 87% of target heart rate. Baseline blood pressure was 130/90. Peak blood pressure 170/100. Patient had dyspnea. No chest pain during exercise. Baseline EKG revealed sinus rhythm as well as intermittent monophasic PVCs. During stress, PVCs got suppressed. During stress, there was no obvious ischemic changes, no significant arrhythmias. RAW DATA: There appears to be adequate myocardial uptake. GATED STUDY: Resting LV ejection fraction 38 and stress LV ejection fraction 42% with inferior wall hypokinesis. Resting end-diastolic volume is 188 mL suggestive of dilated left ventricle. No transient ischemic dilatation. TID ratio is 0.98, which is within normal limits. Lung/heart ratio is 0.27, which is within normal limits. MYOCARDIAL PERFUSION SCAN: Stress supine, resting supine images and stress prone images were compared to each other. It appears to be that patient has predominantly fixed [id number] sized hqlw-ks-cujianrvlo decreased perfusion inferior wall and inferoapex suggestive of dmna-xn-ctgabetg infarction. In addition to that, there is a rcari-et-gfncgqld mild reversible ischemia of distal anterior wall extending into the distal anteroseptum as well. CONCLUSION: This is an abnormal myocardial perfusion study consistent with tylsy-cm-pkniiasj size infarction of inferior wall and inferior apex as well as small-sized reversible ischemia distal anterior wall extending into the distal anterior septum. The left ventricle is dilated. Stress left ventricular (LV) ejection fraction 42%. There is a possibility of 2-vessel coronary artery disease. I will let Dr. Villeda know about the test results. Addendum: Informed Dr. Patel who is covering Dr. Villeda. Meet Neno - [employer]/artie/ab doc#: [id number]/job#: [id number] dd: 01/17/2018 12:43:00 dt: 01/17/2018 14:58:00 DICTATING MD/COPIES TO: Adriana Womack MD COPIES MNE: FILI
== END 2018-01-15 17:13 | disposition home or self-care (01) | DRG 303 ==
LOC: ED 18:16 → AC 18:29
PROVIDERS: Admitting Provider Internal Medicine; Emergency Provider Emergency Medicine; Visit Provider Internal Medicine
DX: I25.5 Ischemic cardiomyopathy (principal); F17.210 Nicotine dependence, cigarettes, uncomplicated; I10 Essential (primary) hypertension; R97.20 Elevated prostate specific antigen [PSA]; R07.9 Chest pain, unspecified; I25.10 Atherosclerotic heart disease of native coronary artery without angina pectoris
CPT/HCPCS: 36415; 71046; 78452; 80048; 80053; 80061; 82550; 82553; 83690; 83735; 83880; 84443; 84484; 85025; 85379; 85610; 85730; 93005; 93016; 93017; 93018; 93041; 94640; 96360; 96361; 99284; 99285; 99406; G0378; A9502; J1650

== ENCOUNTER 2018-01-21 18:30 | Emergency (ER) | payer OTHER, SELFPAY ==
[2018-01-13 18:36] VITALS: BMI 27.5
[2018-01-21] VITALS (7 sets, daily range): BP systolic 109–135; BP diastolic 71–83; PULSE 66–80; RESP 16–27; TEMP 36.7–36.8; O2SAT 97–100; BMI 25.8
--- NOTE | 2018-01-21 18:36 | DI.RAD.S_ITS ---
PROCEDURE: XR CHEST 2V INDICATIONS: chest pain TECHNIQUE: 2 views of the chest were acquired. COMPARISON: [facility], CR, XR CHEST 2V, 01/13/2018, 16:12. FINDINGS: Surgical changes and devices: None. Lungs and pleura: No pleural effusions or pneumothorax. Lungs are clear. 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 Mediastinum: Mediastinal contours are normal. Heart size is normal. Bones and chest wall: No suspicious bony abnormalities. Soft tissues appear unremarkable. IMPRESSION: No acute cardiopulmonary disease. Dictated by: Steve Gutierres M.D. on 01/21/2018 at 19:44 Approved by: Steve Gutierres M.D. on 01/21/2018 at 19:45
[2018-01-21] MEDS: SODIUM CHLORIDE 0.9% 1,000 ML 150 ML IV (18:40)
[2018-01-21 18:53] LABS: Add Manual Diff / Slide Review NO; Eosinophils Percent Auto 3.2 % (2-4); Hematocrit 46.2 % (41-53); Hemoglobin 15.4 g/dL (13.5-17.5); Lymphocytes Percent Auto 31.7 % (25-40); Mean Corpuscular HGB Conc 33.2 % (30-36); Mean Corpuscular Hemoglobin 29.8 PG (26-34); Mean Corpuscular Volume 89.6 fL (80-100); Monocytes Percent Auto 8.9 % (3-14); Neutrophils Absolute Auto 7000 /uL (3000-5900); Neutrophils Percent Auto 55.2 % (50-75); Platelet Count 278 X10^3/uL (150-400); Red Blood Cell Count 5.16 X10^6/uL (4.5-5.9); Red Cell Distribution Width 13.3 % (11.6-14.8); White Blood Cell Count 12.7 X10^3/uL (4.5-11.0)
[2018-01-21 18:54] LABS: Prothrombin Time 10.4 SECONDS (10.1-12.7)
[2018-01-21 18:57] LABS: Alanine Aminotransferase 36 IU/L (21-72); Albumin 4.2 g/dL (3.5-5.0); Albumin Globulin Ratio 1.4 (1.0-2.8); Alkaline Phosphatase 62 U/L (38-126); Aspartate Aminotransferase 29 IU/L (17-59); BUN Creatinine Ratio 31.3 (6-22); Bilirubin Total 0.6 mg/dL (0.2-1.3); Blood Urea Nitrogen 25 mg/dL (9-20); Calcium 9.5 mg/dL (8.4-10.2); Carbon Dioxide 31 mmol/L (22-32); Chloride 101 mmol/L (98-107); Creatine Kinase 71 U/L (55-170); Estimated Glomerular Filt Rate > 60.0 mL/min (>60); Glucose 74 mg/dL (70-100); HEMOLYSIS < 15 (0-50); Lipase 116 U/L (23-300); PTT Partial Thromboplastin Tim 33 SECONDS (26.4-36.2); Potassium 3.8 mmol/L (3.4-5.1); Sodium 140 mmol/L (137-145); Total Protein 7.2 g/dL (6.3-8.2)
[2018-01-21 19:09] LABS: Troponin I < 0.012 ng/mL (0.01-0.034)
--- NOTE | 2018-01-21 19:30 | ED.CHESTPAIN ---
HPI - Chest Pain General Chief Complaint: Chest Pain Stated Complaint: sudden chest px Time Seen by Provider: 01/21/18 18:36 Source: patient, EMS and old records reviewed Mode of arrival: EMS Limitations: no limitations History of Present Illness HPI narrative: Patient is a 52-year-old male presenting with all chest pain. He was admitted January 13 2018 for chest pain he had a nuclear stress test which revealed ejection fraction of 42 %, and he was released with diagnosis dilated cardiomyopathy. Today he went for a walk which he does every other day he had no problems walking. He was at rest in his recliner when his pain started is pressure in his chest nonradiating, he took 2 nitroglycerin which still did not relieve his pain at which point EMS was called. He is now chest pain-free in the ED. He has significant family history mom and dad both of coronary artery disease at an early age. Current risk factors include smoking and hypertension. Related Data Home Medications Medication Instructions Recorded Confirmed gabapentin 1 dose PO DIRECTED 01/13/18 01/21/18 nitroglycerin 0.4 mg SUBLINGUAL Q5-15M PRN 01/21/18 01/21/18 Previous Rx's Medication Instructions Recorded aspirin 325 mg PO DAILY #30 tab 01/15/18 carvedilol [Coreg] 3.125 mg PO BID #60 tab 01/15/18 lisinopril 2.5 mg PO DAILY #30 tab 01/15/18 Allergies Allergy/AdvReac Type Severity Reaction Status Date / Time No Known Drug Allergies Allergy Verified 01/21/18 18:38 Review of Systems Review of Systems All systems reviewed & are unremarkable except as noted in HPI and below Constitutional Denies chills, Denies fever(s), Denies lethargy and Denies weakness Cardiovascular Reports as per HPI, Reports system reviewed and no additional complaints, except as docu and Denies dyspnea on exertion Respiratory Denies pain with cough, Denies dyspnea on exertion and Denies wheezing Gastrointestinal Gastrointestinal: Denies abdominal pain, Denies change in bowel habits, Denies diarrhea, Denies nausea and Denies vomiting Musculoskeletal Denies back pain, Denies muscle weakness, Denies numbness and Denies tingling Neurologic Denies numbness, Denies tingling and Denies weakness Allergic/Immunologic Denies wheezing PFSH Medical History Chronic back pain (Acute) HTN (hypertension) (Acute) Kidney stone (Acute) Prostate cancer (Acute) Family History Other Heart attack High blood cholesterol Hypertension Social History household members: family Smoking Status: Current every day smoker alcohol intake: never Exam Initial Vital Signs Initial Vital Signs: Vital Signs Temperature 98.3 F 01/21/18 18:34 Pulse Rate 71 01/21/18 18:34 Respiratory Rate 16 01/21/18 18:34 Blood Pressure 133/80 H 01/21/18 18:34 Pulse Oximetry 99 01/21/18 18:34 Const General: cooperative and well developed Nutritional Appearance: well nourished Orientation: alert, awake, oriented x3 and not confused Neck Neck: normal visual inspection, full ROM and No JVD Resp Effort & Inspection: normal respiratory effort, able to speak in complete sentences, no respiratory distress and no use of accessory muscles Auscultation: clear to auscultation bilaterally, no rales, no rhonchi and no wheezes Cardio Rate: regular rate Rhythm: regular rhythm Heart Sounds: no click, no gallops, no murmurs and no rubs Pulses: normal peripheral pulses Skin General: no rashes or lesions noted, No jaundice and No petechiae Neuro General: alert, oriented x3, gait normal and no focal motor deficits Speech: speech normal Course Orders Ordered: ED Orders 01/21/18 18:25 Complete Blood Count AUTO DIFF Stat Comprehensive Metabolic Panel Stat Lipase Stat Partial Thromboplastin Time Stat Prothrombin Time INR Stat Troponin with CK Cardiac Panel Stat 01/21/18 18:36 XR chest 2V Stat EKG-12 Lead Stat Discontinued Medications Atorvastatin Calcium (Lipitor) 80 mg PO NOW ONE Stop: 01/21/18 19:46 Last Admin: 01/21/18 19:57 Dose: 80 mg Sodium Chloride (Normal Saline 0.9%) 1,000 mls @ 150 mls/hr IV CONT FRANCESCA Last Infusion: 01/21/18 22:00 Dose: 150 mls/hr Admin: 01/21/18 18:40 Dose: 150 mls/hr Heparin Sodium/Dextrose (Heparin Drip) 25,000 unit in 500 mls @ 19.051 mls/hr IV CONT FRANCESCA; Protocol Last Infusion: 01/21/18 22:20 Dose: 12 units/kg/hr, 19.051 mls/hr Admin: 01/21/18 19:50 Dose: 12 units/kg/hr, 19.051 mls/hr Consultations Consultation #1: Cardiology Dr. Womack has been consulted. He is familiar with this patient and a nuclear stress test. Recommends the patient be transferred to [facility] to the hospitalist team for cardiac catheterization. Also recommends heparin drip and a statin. Along with beta-alejo. Patient is on Coreg and he took his pills already today. Time: 19:44 Consultation #2: Dr. Harris, at [facility] has been updated on patient's symptoms test results and Cardiology recommendations. She happily accepts patient for transfer. Vital Signs - 8 hr 01/21/18 18:34 01/21/18 19:00 01/21/18 19:30 Temperature 98.3 F Pulse Rate 71 67 66 Respiratory Rate 16 21 27 H Blood Pressure 133/80 H Blood Pressure [Left Arm] 128/75 H 113/71 Pulse Oximetry 99 98 97 01/21/18 20:32 01/21/18 21:00 01/21/18 21:30 Temperature Pulse Rate 68 66 67 Respiratory Rate 18 20 18 Blood Pressure Blood Pressure [Left Arm] 109/83 H 114/74 128/79 H Pulse Oximetry 98 98 01/21/18 22:21 Temperature 98.0 F Pulse Rate 80 Respiratory Rate 18 Blood Pressure Blood Pressure [Left Arm] 135/81 H Pulse Oximetry 100 MDM - Chest Pain Lab Data Result diagrams: 01/21/18 18:25 01/21/18 18:25 Lab Results 01/21/18 01/21/18 01/21/18 Range/Units 18:25 18:25 18:25 WBC 12.7 H (4.5-11.0) X10^3/uL RBC 5.16 (4.5-5.9) X10^6/uL Hgb 15.4 (13.5-17.5) g/dL Hct 46.2 (41-53) % MCV 89.6 (80-100) fL MCH 29.8 (26-34) PG MCHC 33.2 (30-36) % RDW 13.3 (11.6-14.8) % Plt Count 278 (150-400) X10^3/uL Neut % (Auto) 55.2 (50-75) % Lymph % (Auto) 31.7 (25-40) % [place] % (Auto) 8.9 (3-14) % Eos % (Auto) 3.2 (2-4) % Baso % (Auto) 1.0 (0-2) % Neut # (Auto) 7000 H (9008-5983) /uL PT 10.4 (10.1-12.7) SECONDS INR 1.0 (0.9-1.3) APTT 33 (26.4-36.2) SECONDS Sodium 140 (137-145) mmol/L Potassium 3.8 (3.4-5.1) mmol/L Chloride 101 (98-107) mmol/L Carbon Dioxide 31 (22-32) mmol/L BUN 25 H (9-20) mg/dL Creatinine 0.80 (0.66-1.25) mg/dL Estimated GFR > 60.0 (>60) mL/min BUN/Creatinine Ratio 31.3 H (6-22) Glucose 74 (70-100) mg/dL Calcium 9.5 (8.4-10.2) mg/dL Total Bilirubin 0.6 (0.2-1.3) mg/dL AST 29 (17-59) IU/L ALT 36 (21-72) IU/L Alkaline Phosphatase 62 (38-126) U/L Total Creatine Kinase 71 (55-170) U/L Troponin I < 0.012 (0.01-0.034) ng/mL Total Protein 7.2 (6.3-8.2) g/dL Albumin 4.2 (3.5-5.0) g/dL Globulin 3.0 (1.7-4.1) g/dL Albumin/Globulin Ratio 1.4 (1.0-2.8) Lipase 116 D (23-300) U/L Imaging Data Chest x-ray: Radiologist's impression: PROCEDURE: XR CHEST 2V INDICATIONS: chest pain TECHNIQUE: 2 views of the chest were acquired. COMPARISON: [facility], , XR CHEST 2V, 01/13/2018, 16:12. FINDINGS: Surgical changes and devices: None. Lungs and pleura: No pleural effusions or pneumothorax. Lungs are clear. 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 Mediastinum: Mediastinal contours are normal. Heart size is normal. Bones and chest wall: No suspicious bony abnormalities. Soft tissues appear unremarkable. IMPRESSION: No acute cardiopulmonary disease. Dictated by: Steve Gutierres M.D. on 01/21/2018 at 19:44 ECG Data Attestation: I personally reviewed and interpreted this ECG as follows: Prior ECG tracings: available for review Interpretation: Normal sinus rhythm rate [address] changes, similar to all previous EKGs. MDM Narrative Medical decision making narrative: Patient has evidence of abnormal wall motion on recent nuclear stress test. He had chest pain after exertion today which was relieved with nitroglycerin. He has had no recurrence of chest pain all the ED. Started on heparin drip and given statin as per Cardiology recommendations. All blood work remains negative. Discharge Plan Departure Patient Disposition: [facility] Clinical Impression: ACS (acute coronary syndrome) Discharge Date/Time: 01/21/18 22:20 Interventions: ED Discharge Assessment Last Done: 01/21/18 22:17 Prescriptions: No Action gabapentin 300 mg Capsule 1 dose PO DIRECTED RF: 0 carvedilol [Coreg] 3.125 mg Tablet 3.125 mg PO BID Qty: 60 RF: 0 aspirin 325 mg Tablet,Delayed Release (Dr/Ec) 325 mg PO DAILY Qty: 30 RF: 0 lisinopril 5 mg Tablet 2.5 mg PO DAILY Qty: 30 RF: 0 nitroglycerin 0.4 mg Tablet, Sublingual 0.4 mg SUBLINGUAL Q5-15M PRN (Reason: Pain (Scale Score 1-3)) RF: 0
[2018-01-21] MEDS: HEPARIN DRIP 25,000 UNIT/500 ML IV.SOLN 19.051 UNIT IV (19:50)
[2018-01-21] MEDS: ATORVASTATIN 20 MG TABLET 80 MG PO (19:57)
== END 2018-01-21 22:20 | disposition short-term general hospital (02) ==
PROVIDERS: Emergency Provider Emergency Medicine
DX: I24.9 Acute ischemic heart disease, unspecified (principal)
CPT/HCPCS: 36591; 71046; 80053; 82550; 82553; 83690; 84484; 85025; 85610; 85730; 93005; 93010; 96361; 96365; 96366; 99283; 99285; J1644

== ENCOUNTER 2018-04-28 04:44 | Emergency (ER) | payer SELFPAY ==
[2018-01-13 18:36] VITALS: BMI 27.5
[2018-04-28 04:52] VITALS: BP 125/86; PULSE 60; RESP 18; TEMP 36.4; O2SAT 99; BMI 26.6
[2018-04-28] MEDS: KETOROLAC 30 MG/ML VIAL 15 MG IV (04:55)
[2018-04-28] MEDS: SODIUM CHLORIDE 0.9% 1,000 ML 1000 ML IV (04:55)
--- NOTE | 2018-04-28 04:59 | ED_ITS ---
HPI - Back Pain/Injury General Chief Complaint: Back Pain/Injury Stated Complaint: states kidney stones Time Seen by Provider: 04/28/18 04:46 Source: patient Mode of arrival: ambulatory Limitations: no limitations History of Present Illness HPI Narrative: 52-year-old male, nonsmoker with cardiac history presents with sudden-onset severe left flank pain that woke him from sleep just prior to arrival. He states the pain is sharp and stabbing and radiates around his left flank. He states that reminds him of prior kidney stones. He states the pain has a minor his own but may get a bit worse with him moving. He admits to nausea but denies any vomiting. He denies dysuria, frequency or urgency. He has had no fever or chills. MD Complaint: back pain Onset (ago): hour(s) Duration: intermittent Similar Symptoms Previously: Yes Location: left flank Severity: severe Quality: sharp Radiation: abdomen Relieving factors: none Exacerbating factors: none Related Data Home Medications Medication Instructions Recorded Confirmed gabapentin 1 dose PO DIRECTED 01/13/18 01/21/18 nitroglycerin 0.4 mg SUBLINGUAL Q5-15M PRN 01/21/18 01/21/18 Previous Rx's Medication Instructions Recorded aspirin 325 mg PO DAILY #30 tab 01/15/18 carvedilol [Coreg] 3.125 mg PO BID #60 tab 01/15/18 lisinopril 2.5 mg PO DAILY #30 tab 01/15/18 cephalexin [Keflex] 500 mg PO QID 7 Days #28 cap 04/28/18 hydrocodone-acetaminophen 1 tab PO Q4-6H PRN #14 tab 04/28/18 ketorolac 10 mg PO Q6H PRN #14 tab 04/28/18 ondansetron [Zofran ODT] 4 mg PO Q6H PRN #14 tab 04/28/18 tamsulosin [Flomax] 0.4 mg PO DAILY #10 cap 04/28/18 Allergies Allergy/AdvReac Type Severity Reaction Status Date / Time No Known Drug Allergies Allergy Verified 01/21/18 18:38 Review of Systems Review of Systems All systems reviewed & are unremarkable except as noted in HPI and below Constitutional Denies chills, Denies fever(s), Denies lethargy and Denies weakness Eyes Denies change in vision, Denies eye discharge, Denies irritation and Denies loss of vision ENT Ears, Nose, Mouth, and Throat: Denies change in voice, Denies neck pain and Denies sore throat Cardiovascular Denies chest pain, Denies irregular heart rhythm, Denies lightheadedness, Denies palpitations, Denies dyspnea, Denies dyspnea on exertion and Denies orthopnea Respiratory Denies cough, Denies dyspnea, Denies dyspnea on exertion and Denies wheezing Gastrointestinal Gastrointestinal: Denies abdominal pain, Denies change in bowel habits, Denies diarrhea, Denies nausea and Denies vomiting Genitourinary Denies hematuria, Reports flank pain, Denies urinary incontinence and Denies urinary urgency Musculoskeletal Denies neck pain Integumentary/Breasts Denies pruritus, Denies erythema, Denies rash and Denies wounds Neurologic Denies confusion, Denies loss of vision and Denies weakness Psychiatric Denies anxiety, Denies confusion, Denies depression, Denies homicidal ideation and Denies suicidal ideation Endocrine Denies palpitations Hematologic/Lymphatic Denies easy bruising Allergic/Immunologic Denies wheezing PFSH Medical History Chronic back pain (Acute) HTN (hypertension) (Acute) Kidney stone (Acute) Prostate cancer (Acute) Family History Other Heart attack High blood cholesterol Hypertension Social History household members: family Smoking Status: Former smoker alcohol intake: never Exam Narrative Exam Narrative: 52-year-old male obviously uncomfortable, clutching his left flank Initial Vital Signs Initial Vital Signs: Vital Signs Temperature 97.6 F 04/28/18 04:52 Pulse Rate 60 04/28/18 04:52 Respiratory Rate 18 04/28/18 04:52 Blood Pressure 125/86 04/28/18 04:52 Pulse Oximetry 99 04/28/18 04:52 Const General: cooperative, well developed and in distress Nutritional Appearance: well nourished Orientation: alert, awake, oriented x3 and not confused HENMT Head: normocephalic and atraumatic Ears: external ears normal and TM's normal bilaterally Nose: external nose normal and No nasal discharge Face and sinus: sinuses nontender, face symmetric, no sinus tenderness and No dry mucous membranes Mouth: oral mucosae normal and moist mucous membranes Teeth and gingiva: dentition normal Throat: tonsils normal and uvula midline Neck Neck: normal visual inspection, trachea midline, No lymphadenopathy, No midline deformity and No JVD Lymphatic: No lymphedema Chest Chest: normal inspection of the chest Resp Effort & Inspection: normal respiratory effort, able to speak in complete sentences, no respiratory distress and no use of accessory muscles Auscultation: clear to auscultation bilaterally, no rales, no rhonchi and no wheezes Cardio Rate: regular rate Rhythm: regular rhythm Heart Sounds: no click, no gallops, no murmurs and no rubs Pulses: normal peripheral pulses GI Inspection: non-distended Palpation: soft, no hepatosplenomegaly, No guarding, No pulsatile mass and No tender Auscultation: normal bowel sounds Back/Spine/Pelvis Back: CVA tenderness Cervical Spine: cervical ROM normal and No pain with cervical ROM Thoracic/Lumbar Spine: thoracic and lumbar spine normal to inspection Skin General: no rashes or lesions noted, No jaundice and No petechiae Extrem General: full ROM, no clubbing, cyanosis or edema, no pedal edema and no calf tenderness Course Orders Ordered: ED Orders 04/28/18 04:45 Urine Microscopic Stat 04/28/18 05:01 Basic Metabolic Panel Stat Complete Blood Count AUTO DIFF Stat Discontinued Medications Sodium Chloride (Normal Saline 0.9%) 1,000 mls @ 1,000 mls/hr IV BOLUS ONE Stop: 04/28/18 05:47 Last Infusion: 04/28/18 06:11 Dose: 0 mls/hr Admin: 04/28/18 04:55 Dose: 1,000 mls/hr Ketorolac Tromethamine (Toradol) 15 mg IV NOW ONE Stop: 04/28/18 04:49 Last Admin: 04/28/18 04:55 Dose: 15 mg Vital Signs - 8 hr 04/28/18 04:52 04/28/18 06:12 Temperature 97.6 F Pulse Rate 60 65 Respiratory Rate 18 16 Blood Pressure 125/86 133/80 Pulse Oximetry 99 96 MDM - Back Pain/Injury Lab Data Result diagrams: 04/28/18 05:01 04/28/18 05:01 Lab Results 04/28/18 04/28/18 04/28/18 Range/Units 04:45 05:01 05:01 WBC 14.0 H (4.5-11.0) X10^3/uL RBC 4.72 (4.5-5.9) X10^6/uL Hgb 13.4 L (13.5-17.5) g/dL Hct 40.2 L (41-53) % MCV 85.1 (80-100) fL MCH 28.5 (26-34) PG MCHC 33.5 (30-36) % RDW 12.7 (11.6-14.8) % Plt Count 367 (150-400) X10^3/uL Neut % (Auto) 73.7 (50-75) % Lymph % (Auto) 14.0 L (25-40) % [place] % (Auto) 7.3 (3-14) % Eos % (Auto) 4.1 H (2-4) % Baso % (Auto) 0.9 (0-2) % Neut # (Auto) 27458 H (7637-3261) /uL Sodium 143 (137-145) mmol/L Potassium 4.1 (3.4-5.1) mmol/L Chloride 105 (98-107) mmol/L Carbon Dioxide 27 (22-32) mmol/L BUN 29 H (9-20) mg/dL Creatinine 1.00 (0.66-1.25) mg/dL Estimated GFR > 60.0 (>60) mL/min BUN/Creatinine Ratio 29.0 H (6-22) Glucose 102 H (70-100) mg/dL Calcium 9.4 (8.4-10.2) mg/dL Urine RBC 10-30/hpf H (0-5/HPF) Urine WBC None seen (0-5/HPF) Urine Bacteria Occasional (0-1) (None) Hyaline Casts 0-1/lpf (None) Urine Mucus 1+ H (Negative) Ur Culture Indicated? Cult not indicated Micro UA Comment Not Reportable Urine Dip Bedside Urine Bilirubin - Negative Bedside Urine Ketone - Negative Urine Specific [place] 1.030 Bedside Urine Occult Blood +++ Bedside Urine pH 5.5 Bedside Urine Protein - Negative Bedside Urine Urobilinogen - Negative Bedside Urine Nitrite - Negative Bedside Urine Leukocytes - Negative Esterase Discharge Plan Departure Patient Disposition: Home Clinical Impression: Kidney stone on left side Discharge Date/Time: 04/28/18 06:13 Interventions: ED Discharge Assessment Last Done: 04/28/18 06:12 Instructions: Kidney Stones -- Adult Activity Restrictions/Additional Instructions: You have been prescribed narcotic medications. While on these medications you cannot drive or operate heavy machinery. Additionally you cannot sign legal documents or perform any duties such as this. 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 Please understand that we cannot provide further refills of narcotics or controlled substances through the ED and your pain management will need to be through your Primary Care Provider *You have been diagnosed with [ left-sided kidney stone ] *What to do: *Take medications as directed *Follow up with your primary care provider in 2-3 days, call for an appointment. Let them know you were seen in the Emergency Department and that we ask that you be seen in follow up *Return to ER if you should have any new, worsening or concerning symptoms, Prescriptions: New hydrocodone-acetaminophen 5-325 mg tablet 1 tab PO Q4-6H PRN (Reason: pain) Qty: 14 RF: 0 ketorolac 10 mg tablet 10 mg PO Q6H PRN (Reason: pain) Qty: 14 RF: 0 ondansetron [Zofran ODT] 4 mg tablet,disintegrating 4 mg PO Q6H PRN (Reason: nausea and vomiting) Qty: 14 RF: 0 tamsulosin [Flomax] 0.4 mg capsule 0.4 mg PO DAILY Qty: 10 RF: 0 cephalexin [Keflex] 500 mg capsule 500 mg PO QID 7 Days Qty: 28 RF: 0 No Action gabapentin 300 mg Capsule 1 dose PO DIRECTED RF: 0 carvedilol [Coreg] 3.125 mg Tablet 3.125 mg PO BID Qty: 60 RF: 0 aspirin 325 mg Tablet,Delayed Release (Dr/Ec) 325 mg PO DAILY Qty: 30 RF: 0 lisinopril 5 mg Tablet 2.5 mg PO DAILY Qty: 30 RF: 0 nitroglycerin 0.4 mg Tablet, Sublingual 0.4 mg SUBLINGUAL Q5-15M PRN (Reason: Pain (Scale Score 1-3)) RF: 0 Referrals: Yamile Sofia MD [Physician] -
[2018-04-28 05:03] LABS: WBC Urine None Seen (0-5/HPF)
[2018-04-28 05:10] LABS: Hyaline Casts Urine 0-1/LPF; Mucus Urine 1+ (Negative); RBC Urine 10-30/HPF (0-5/HPF)
[2018-04-28 05:11] LABS: Add Manual Diff / Slide Review NO; Basophils Percent Auto 0.9 % (0-2); Eosinophils Percent Auto 4.1 % (2-4); Hematocrit 40.2 % (41-53); Hemoglobin 13.4 g/dL (13.5-17.5); Mean Corpuscular HGB Conc 33.5 % (30-36); Mean Corpuscular Hemoglobin 28.5 PG (26-34); Mean Corpuscular Volume 85.1 fL (80-100); Monocytes Percent Auto 7.3 % (3-14); Neutrophils Absolute Auto 10300 /uL (3000-5900); Neutrophils Percent Auto 73.7 % (50-75); Platelet Count 367 X10^3/uL (150-400); Red Blood Cell Count 4.72 X10^6/uL (4.5-5.9); Red Cell Distribution Width 12.7 % (11.6-14.8)
[2018-04-28 05:11] LABS: Bacteria Urine Occasional (0-1); Culture Indicated Urine Cult Not Indicated
[2018-04-28 05:19] LABS: Blood Urea Nitrogen 29 mg/dL (9-20); Calcium 9.4 mg/dL (8.4-10.2); Carbon Dioxide 27 mmol/L (22-32); Chloride 105 mmol/L (98-107); Estimated Glomerular Filt Rate > 60.0 mL/min (>60); Glucose 102 mg/dL (70-100); HEMOLYSIS < 15 (0-50); Potassium 4.1 mmol/L (3.4-5.1); Sodium 143 mmol/L (137-145)
[2018-04-28 06:12] VITALS: BP 133/80; PULSE 65; RESP 16; O2SAT 96
== END 2018-04-28 06:13 | disposition home or self-care (01) ==
PROVIDERS: Emergency Provider Emergency Medicine
DX: N20.0 Calculus of kidney (principal)
CPT/HCPCS: 36591; 80048; 81003; 81015; 85025; 96361; 96374; 99283; 99284; J1885

== ENCOUNTER → 2018-05-16 12:29 | Outpatient (CLI) | payer OTHER, MEDICAID, SELFPAY ==
[2018-01-13 18:36] VITALS: BMI 27.5
--- NOTE | 2018-05-16 | DI.ECHO.S_ITS ---
[facility]---------+ [facility] +---------+ : : [address] : : : : [id number] : : : : Phone: [phone]+ Echocardiogram Report + + :Name: YUSEF LASSITER Study Date: 05/16/2018 Height: 69 in : :[facility] Exam Location: [facility] Weight: 189 lb : : Gender: Male BSA: 2.0 m2 : :: 1965 Age: 52 yrs BP: 120/70 mmHg: :Reason For Study: NONISCHEMIC CARDIOMYOPATHY : :Ordering Physician: Colette Le : :Filomena Performed By: Philomena Carrington : :Referring: COLETTE OSEGUERA : + + Interpretation Summary Normal sinus rhythm. Normal LV size, wall thickness, mild global hypokinesis. Ejection fraction is 45-50 percent. No diastolic dysfunction. Moderate left atrial enlargement; mild-moderate right atrial enlargement No significant valvular abnormalities. Compared to prior complete study performed January 15, 2018, LV is more dynamic. E-point septal separation is down from 1.7 cm to 0.8 cm consistent with improvement in left ventricular systolic function. Procedure: A two-dimensional transthoracic echocardiogram with color flow and Doppler was performed. The study quality was technically adequate. Comparison is made with the echocardiogram of 01/29/18. The patient has a paced rhythm. Left Ventricle: The left ventricle is normal in size. There is normal left ventricular wall thickness. The ejection fraction is estimated to be 45-50%. There is mild global hypokinesis of the left ventricle. Right Ventricle: The right ventricle is mildly dilated. There is a pacemaker lead in the right ventricle. Right ventricular systolic function is mildly reduced. Atria: The left atrium is moderately dilated. The right atrium is mild to moderately dilated. There is a catheter/pacemaker lead seen in the right atrium. There is no Doppler evidence for an interatrial shunt. Mitral Valve: The mitral valve is grossly normal. There is trace mitral regurgitation. Aortic Valve: The aortic valve is trileaflet. There is mild aortic valve sclerosis. The aortic valve opens well. No aortic regurgitation is present. Tricuspid Valve: The tricuspid valve is normal. There is a trace or physiologic amount of tricuspid regurgitation. Pulmonary artery pressures cannot be estimated because of the lack of a measurable TR jet velocity. Pulmonic Valve: The pulmonic valve is not well visualized. There is trace pulmonic regurgitation. Great Vessels: The aortic root is normal size. The ascending aorta is normal in size. The aortic arch is normal in size. The pulmonary artery is normal size. The IVC is of normal diameter and collapses greater than 50% with a sniff. This suggests a low right atrial pressure of 3 mm Hg. Pericardium/ Pleura There is no pericardial effusion. There is no pleural effusion. MMode/2D Measurements & Calculations LVIDd: 5.1 cm LVOT diam: 2.4 cm LVIDs: 3.6 cm Ao root diam: 3.5 cm FS: 28.7 % asc Aorta Diam: 2.8 cm EPSS: 0.80 cm Ao Arch Diam (Prox Trans): 2.5 cm IVSd: 0.91 cm LVPWd: 1.0 cm LV maldonado. diameter/BSA (cm/m^2): 2.5 LV sys. diameter/BSA (cm/m^2): 1.8 LA A2 area: 22.5 cm2 RA long axis: 5.0 cm LA A4 area: 27.4 cm2 RA area: 21.2 cm2 LA length (vol): 5.8 cm RA vol: 75.6 ml LA vol: 89.9 ml RA : 37.5 ml/m2 LA vol index: 44.6 ml/m2 IVC diam: 1.3 cm RVD1 (basal): 4.0 cm RVD2 (mid): 3.9 cm TAPSE: 1.0 cm Doppler Measurements & Calculations Ao V2 max: 118.5 cm/sec LVOT Max Thomas: 108.1 cm/sec Ao V2 mean: 85.6 cm/sec LV V1 max P.7 mmHg Ao max P.6 mmHg LV V1 VTI: 19.7 cm Ao mean P.2 mmHg MYLES(I,D): 4.3 cm2 Ao V2 VTI: 19.9 cm MYLES(V,D): 4.0 cm2 sev ratio: 0.99 MYLES indexed to BSA (cm^2/m^2): 2.1 MV E max thomas: 52.4 cm/sec PA V2 max: 58.2 cm/sec MV A max thomas: 43.6 cm/sec PA V2 mean: 35.8 cm/sec MV E/A: 1.2 PA mean P.65 mmHg Med Peak E' Thomas: 7.3 cm/sec PA pr(Accel): 36.6 mmHg E/E' med: 7.2 Lat Peak E' Thomas: 9.2 cm/sec E/E' lat: 5.7 E/e' average: 6.5 MV dec time: 0.32 sec MV P1/2t: 93.3 msec MV 2t max thomas: 51.6 cm/sec MVA(t): 2.4 cm2 Reading Physician:06:52 PM
== END ==
PROVIDERS: Visit Provider Internal Medicine Cardiovascular Disease
DX: I35.8 Other nonrheumatic aortic valve disorders (principal); I42.8 Other cardiomyopathies; Z95.0 Presence of cardiac pacemaker
CPT/HCPCS: 93306

== ENCOUNTER → 2019-05-22 15:03 | Outpatient (CLI) | payer OTHER, MEDICAID, SELFPAY ==
[2018-01-13 18:36] VITALS: BMI 27.5
[2019-05-22 15:42] LABS: Appearance Urine UA CLEAR; Bilirubin Urine UA NEGATIVE (NEGATIVE); Color Urine UA YELLOW; Glucose Urine UA NEGATIVE (Negative); Ketones Urine UA NEGATIVE (NEGATIVE); Leukocyte Esterase Urine UA TRACE (NEGATIVE); Nitrite Urine UA NEGATIVE (Negative); Occult Blood Urine UA 2+ (Negative); Protein Urine UA NEGATIVE (Negative); Specific Gravity Urine UA 1.025 (1.000-1.035); Urobilinogen Urine UA 0.2 E.U./dL (0.2)
[2019-05-22 16:03] LABS: Add Manual Diff / Slide Review NO; Basophils Absolute Auto 100 /uL (0-100); Basophils Percent Auto 1.1 % (0-2); Eosinophils Absolute Auto 300 /uL (0-450); Eosinophils Percent Auto 2.9 % (2-4); Hematocrit 48.1 % (41-53); Lymphocytes Absolute Auto 1900 /uL (1100-4500); Mean Corpuscular HGB Conc 33.2 % (30-36); Mean Corpuscular Volume 90.3 fL (80-100); Monocytes Absolute Auto 800 /uL (0-900); Monocytes Percent Auto 7.3 % (3-14); Neutrophils Absolute Auto 7500 /uL (1500-7000); Neutrophils Percent Auto 70.7 % (50-75); Platelet Count 221 X10^3/uL (150-400); Red Blood Cell Count 5.33 X10^6/uL (4.5-5.9); White Blood Cell Count 10.6 X10^3/uL (4.5-11.0)
[2019-05-22 16:23] LABS: Bacteria Urine None Seen; Calcium Oxalate Crystals Urine Moderate; RBC Urine 1-5/HPF (0-5/HPF); Squamous Epithelial Cell Urine 0-1 /HPF (0-5/HPF); WBC Urine 1-5/HPF (0-5/HPF)
[2019-05-22 16:24] LABS: Culture Indicated Urine Cult Not Indicated
[2019-05-22 16:34] LABS: Alanine Aminotransferase 22 IU/L (21-72); Albumin 4.4 g/dL (3.5-5.0); Albumin Globulin Ratio 1.6 (1.0-2.8); Alkaline Phosphatase 86 U/L (38-126); Aspartate Aminotransferase 29 IU/L (17-59); Bilirubin Total 0.8 mg/dL (0.2-1.3); Blood Urea Nitrogen 16 mg/dL (9-20); Calcium 10.2 mg/dL (8.4-10.2); Carbon Dioxide 29 mmol/L (22-32); Chloride 102 mmol/L (98-107); Cholesterol 165 mg/dL (140-199); Estimated Glomerular Filt Rate > 60.0 mL/min (>60); Globulin 2.8 g/dL (1.7-4.1); Glucose 113 mg/dL (70-100); HDL Cholesterol 64 mg/dL (40-60); HEMOLYSIS < 15 (0-50); LDL Cholesterol Calculated 88 mg/dL (<100); Potassium 4.8 mmol/L (3.4-5.1); Sodium 140 mmol/L (137-145); Total Protein 7.2 g/dL (6.3-8.2); Triglycerides 65 mg/dL (35-150)
[2019-05-22 17:04] LABS: Prostate Specific Antigen 4.33 ng/mL (0.10-4.00); Thyroid Stimulating Hormone 0.37 uIU/mL (0.47-4.68)
== END ==
PROVIDERS: PCP Family Medicine; Visit Provider Family Medicine
DX: L98.9 Disorder of the skin and subcutaneous tissue, unspecified (principal); R39.9 Unspecified symptoms and signs involving the genitourinary system; R97.20 Elevated prostate specific antigen [PSA]; Z95.810 Presence of automatic (implantable) cardiac defibrillator
CPT/HCPCS: 36415; 80053; 80061; 81003; 81015; 84153; 84443; 85025

== ENCOUNTER → 2020-05-24 14:01 | Outpatient (CLI) | payer OTHER, MEDICAID, SELFPAY ==
[2018-01-13 18:36] VITALS: BMI 27.5
[2020-05-24 14:41] LABS: BUN Creatinine Ratio 29.1 (6-22); Blood Urea Nitrogen 25 mg/dL (9-20); Calcium 9.7 mg/dL (8.4-10.2); Carbon Dioxide 24 mmol/L (22-32); Chloride 108 mmol/L (98-107); Estimated Glomerular Filt Rate > 60.0 mL/min (>60); Glucose 120 mg/dL (70-100); HEMOLYSIS < 15 (0-50); Potassium 4.4 mmol/L (3.4-5.1); Sodium 136 mmol/L (137-145)
== END ==
PROVIDERS: PCP Family Medicine; Referring Provider Physician Assistant; Visit Provider Physician Assistant
DX: I42.8 Other cardiomyopathies (principal)
CPT/HCPCS: 36415; 80048

== ENCOUNTER → 2020-07-29 11:05 | Outpatient (CLI) | payer OTHER, MEDICAID, SELFPAY ==
[2018-01-13 18:36] VITALS: BMI 27.5
== END ==
PROVIDERS: PCP Family Medicine; Referring Provider Urology; Visit Provider Urology
DX: R97.20 Elevated prostate specific antigen [PSA] (principal)
CPT/HCPCS: 36415; 84153

== ENCOUNTER 2021-03-28 01:28 | Emergency (ER) | payer OTHER, MEDICAID, SELFPAY ==
[2018-01-13 18:36] VITALS: BMI 27.5
[2021-03-28] VITALS (13 sets, daily range): BP systolic 129–157; BP diastolic 72–104; PULSE 75–90; RESP 14–28; TEMP 36.6; O2SAT 93–98; BMI 30.2
--- NOTE | 2021-03-28 01:40 | ED.SYNCOPE ---
HPI - Syncope General Chief Complaint: Syncope Stated Complaint: lightheaded, incoherent for a time Time Seen by Provider: 03/28/21 01:29 History of Present Illness HPI narrative: 55-year-old male former smoker with history of dual chamber AICD, elevated PSA, hypertension, hyperlipidemia and recent diagnosis and treatment of left internal jugular thrombus presents with family in the chief complaint of an unprovoked syncopal episode earlier this evening. The patient had been in his normal state of health throughout the day. He denies any new medications or dietary change. He was sitting on a bench attempting to get his hair cut about 1 hour prior to his arrival when he had a syncopal episode that was witnessed. He was not sitting in an awkward position, was not attempting to change position or stand up. He denies any head injury, headache, blurred vision or trouble with speech. His chief complaint is only a being tired at this point. He denies any recent nausea, vomiting or diarrhea. He denies any chest pain or shortness of breath. He denies any likelihood that his defibrillator shocked. He presented to an outside facility on February 22 complaining of left-sided neck pain and had some pain and swelling in his left arm. There was concern for possible cellulitis in his arm as well as pneumonia and he received vancomycin, Rocephin and Flagyl. He has not received vaccination for COVID-19 Related Data Home Medications Medication Instructions Recorded Confirmed carvedilol 6.25 mg tablet 6.25 mg PO BID 07/06/18 03/25/21 lisinopril 5 mg tablet 5 mg PO DAILY 07/06/18 03/25/21 apixaban 5 mg tablet (Eliquis) 5 mg PO ONCE tab 03/06/21 03/25/21 Previous Rx's Medication Instructions Recorded amoxicillin 875 mg-potassium 1 tab PO BID #20 tab 02/21/21 clavulanate 125 mg tablet (Augmentin) Allergies Allergy/AdvReac Type Severity Reaction Status Date / Time No Known Drug Allergies Allergy Verified 03/06/21 08:13 Review of Systems Review of Systems Narrative: GENERAL: Denies chills, fatigue, malaise, fever, sweats. HEENT: Denies sinus pain, ear pain, sore throat, difficulty swallowing, dizziness. RESPIRATORY: Denies dyspnea, cough, wheezing, hemoptysis, sputum. CARDIOVASCULAR: See HPI GASTROINTESTINAL: Denies nausea, vomiting, abdominal pain, diarrhea, constipation, melena. : Denies dysuria, frequency, incontinence, hematuria, urinary retention. MUSCULOSKELETAL: denies weakness, joint pain, or bony pain SKIN: Denies rash, skin lesions, or other NEUROLOGIC: Denies weakness, headache, numbness, change in speech, confusion, seizures, incoordination. PSYCHIATRIC: No concerning psychosocial issues. 12 point review of systems is negative except for those stated above Patient History Medical History Chronic back pain HTN (hypertension) Hyperlipidemia Internal jugular (IJ) vein thromboembolism, acute Kidney stone Pacemaker (01/25/18) Prostate cancer Surgical History Anesthesia Status post placement of cardiac pacemaker (01/25/18) Family History Father Cancer Mother Cancer Sister Cancer Other Heart attack High blood cholesterol Hypertension Social History household members: family Smoking Status: Former smoker alcohol intake: never Smoking Status: Former smoker alcohol intake frequency: 0-2 drinks per day Substance Use Type: marijuana Exam Narrative Exam Narrative: GENERAL: [55] year old patient appears stated age. Well-developed patient, in mild distress. HEAD: Atraumatic. Normocephalic. EYES: Pupils equal round and reactive. Extraocular motions intact. No scleral icterus. No injection or drainage. ENT: Nose without bleeding, purulent drainage. Throat without erythema, tonsillar hypertrophy or exudate. Airway patent. NECK: Trachea midline. Non tender CARDIOVASCULAR: Regular rate and rhythm without murmurs, gallops, or rubs. RESPIRATORY: Clear to auscultation. Breath sounds equal bilaterally. No wheezes, rales, or rhonchi. GASTROINTESTINAL: Abdomen soft, non-tender, nondistended. EXTREMITIES: No edema or joint tenderness. BACK: Nontender without deformity or crepitance. No flank tenderness. NEURO: AOx3. SKIN: No rash or erythema of visible areas Initial Vital Signs Initial Vital Signs: Vital Signs Temperature 97.8 F 03/28/21 01:35 Pulse Rate 88 03/28/21 01:35 Respiratory Rate 15 03/28/21 01:35 Blood Pressure 135/104 H 03/28/21 01:35 Pulse Oximetry 98 03/28/21 01:35 Course Orders Ordered: ED Orders 03/28/21 01:40 COVID19 - ADMIT (HEALTHCARE SPECIALIST swab/PCR) Stat Complete Blood Count AUTO DIFF Stat Comprehensive Metabolic Panel Stat Ethanol (ETOH) Stat Magnesium Stat NT-proBNP (BNP-Adult 18+) Stat Prothrombin Time INR Stat Troponin & CK Cardiac Panel Stat Urine Drug Screen, Rapid Stat EKG-12 Lead Stat 03/28/21 01:43 CT angio chest PE protocol Stat CT head/brain wo con Stat 03/28/21 01:44 CT abdomen pelvis w con Stat 03/28/21 04:35 Trop I [Troponin I] Stat Sodium Chloride (Normal Saline 0.9%) 1,000 mls @ 125 mls/hr IV CONT FRANCESCA Last Admin: 03/28/21 02:06 Dose: 125 mls/hr Documented by: Vital Signs Vital signs: Vital Signs - 8 hr 03/28/21 01:35 03/28/21 01:39 03/28/21 02:00 Temperature 97.8 F Pulse Rate 88 83 84 Pulse Rate [Orthostatic Lying] Pulse Rate [Orthostatic Sitting] Pulse Rate [Orthostatic Standing] Respiratory Rate 15 20 28 H Blood Pressure 135/104 H 139/90 Blood Pressure [Orthostatic Lying] Blood Pressure [Orthostatic Sitting] Blood Pressure [Orthostatic Standing] Pulse Oximetry 98 96 03/28/21 02:30 03/28/21 03:00 03/28/21 03:30 Temperature Pulse Rate 75 78 80 Pulse Rate [Orthostatic Lying] Pulse Rate [Orthostatic Sitting] Pulse Rate [Orthostatic Standing] Respiratory Rate 18 20 21 Blood Pressure 130/72 135/79 143/81 H Blood Pressure [Orthostatic Lying] Blood Pressure [Orthostatic Sitting] Blood Pressure [Orthostatic Standing] Pulse Oximetry 96 97 96 03/28/21 03:49 Temperature Pulse Rate Pulse Rate [Orthostatic Lying] 85 Pulse Rate [Orthostatic Sitting] 81 Pulse Rate [Orthostatic Standing] 89 Respiratory Rate Blood Pressure Blood Pressure [Orthostatic Lying] 144/79 H Blood Pressure [Orthostatic Sitting] 129/76 Blood Pressure [Orthostatic Standing] 157/95 H Pulse Oximetry MDM - Syncope Lab Data Result diagrams: 03/28/21 01:50 03/28/21 01:50 Labs: Lab Results 03/28/21 03/28/21 03/28/21 Range/Units 01:49 01:50 01:50 WBC 12.5 H (4.5-11.0) X10^3/uL RBC 5.29 (4.5-5.9) X10^6/uL Hgb 15.3 (13.5-17.5) g/dL Hct 46.5 (41-53) % MCV 87.9 (80-100) fL MCH 28.9 (26-34) PG MCHC 32.8 (30-36) % RDW 13.1 (11.6-14.8) % Plt Count 261 (150-400) X10^3/uL Neut % (Auto) 65.8 (50-75) % Lymph % (Auto) 22.0 L (25-40) % [place] % (Auto) 7.5 (3-14) % Eos % (Auto) 3.5 (2-4) % Baso % (Auto) 1.2 (0-2) % Neut # (Auto) 8200 H (7326-8068) /uL Lymph # (Auto) 2700 (2075-2292) /uL [place] # (Auto) 900 (0-900) /uL Eos # (Auto) 400 (0-450) /uL Baso # (Auto) 100 (0-100) /uL PT (10.1-12.7) SECONDS INR (0.9-1.3) Sodium 139 (137-145) mmol/L Potassium 3.7 (3.4-5.1) mmol/L Chloride 106 (98-107) mmol/L Carbon Dioxide 26 (22-32) mmol/L BUN 18 (9-20) mg/dL Creatinine 0.83 (0.66-1.25) mg/dL Estimated GFR > 60.0 (>60) mL/min BUN/Creatinine Ratio 21.7 (6-22) Glucose 104 H (70-100) mg/dL Calcium 9.8 (8.4-10.2) mg/dL Magnesium 2.0 (1.6-2.3) mg/dL Total Bilirubin 0.5 (0.2-1.3) mg/dL AST 41 (17-59) IU/L ALT 49 (<50) IU/L Alkaline Phosphatase 86 (38-126) U/L Total Creatine Kinase 80 (55-170) U/L CK-MB (CK-2) TNP CK-MB (CK-2) Rel Index TNP Troponin I < 0.012 (0.01-0.034) ng/mL NT-Pro-B Natriuret Pep 90 (<125) pg/mL Total Protein 7.5 (6.3-8.2) g/dL Albumin 4.2 (3.5-5.0) g/dL Globulin 3.3 (1.7-4.1) g/dL Albumin/Globulin Ratio 1.3 (1.0-2.8) U Opiates 300ng/mL cut (Negative) Ur Oxycodone Screen (Negative) Urine Methadone Screen (Negative) Ur Barbiturates Screen (Negative) U Tricyclic Antidepress (Negative) Ur Phencyclidine Scrn (Negative) Ur Amphetamines Screen (Negative) U Methamphetamines Scrn (Negative) Ur MDMA Scrn (Ecstasy) (Negative) U Benzodiazepines Scrn (Negative) Urine Cocaine Screen (Negative) U Marijuana (THC) Screen (Negative) Ethyl Alcohol < 10 ( - 10) mg/dL SARS-CoV-2 (PCR) Negative (Negative) 03/28/21 03/28/21 03/28/21 Range/Units 02:00 03:50 04:35 WBC (4.5-11.0) X10^3/uL RBC (4.5-5.9) X10^6/uL Hgb (13.5-17.5) g/dL Hct (41-53) % MCV (80-100) fL MCH (26-34) PG MCHC (30-36) % RDW (11.6-14.8) % Plt Count (150-400) X10^3/uL Neut % (Auto) (50-75) % Lymph % (Auto) (25-40) % [place] % (Auto) (3-14) % Eos % (Auto) (2-4) % Baso % (Auto) (0-2) % Neut # (Auto) (2381-3609) /uL Lymph # (Auto) (6734-6016) /uL [place] # (Auto) (0-900) /uL Eos # (Auto) (0-450) /uL Baso # (Auto) (0-100) /uL PT 12.2 (10.1-12.7) SECONDS INR 1.1 (0.9-1.3) Sodium (137-145) mmol/L Potassium (3.4-5.1) mmol/L Chloride (98-107) mmol/L Carbon Dioxide (22-32) mmol/L BUN (9-20) mg/dL Creatinine (0.66-1.25) mg/dL Estimated GFR (>60) mL/min BUN/Creatinine Ratio (6-22) Glucose (70-100) mg/dL Calcium (8.4-10.2) mg/dL Magnesium (1.6-2.3) mg/dL Total Bilirubin (0.2-1.3) mg/dL AST (17-59) IU/L ALT (<50) IU/L Alkaline Phosphatase (38-126) U/L Total Creatine Kinase (55-170) U/L CK-MB (CK-2) CK-MB (CK-2) Rel Index Troponin I < 0.012 (0.01-0.034) ng/mL NT-Pro-B Natriuret Pep (<125) pg/mL Total Protein (6.3-8.2) g/dL Albumin (3.5-5.0) g/dL Globulin (1.7-4.1) g/dL Albumin/Globulin Ratio (1.0-2.8) U Opiates 300ng/mL cut Negative (Negative) Ur Oxycodone Screen Negative (Negative) Urine Methadone Screen Negative (Negative) Ur Barbiturates Screen Negative (Negative) U Tricyclic Antidepress Negative (Negative) Ur Phencyclidine Scrn Negative (Negative) Ur Amphetamines Screen Positive H (Negative) U Methamphetamines Scrn Positive H (Negative) Ur MDMA Scrn (Ecstasy) Negative (Negative) U Benzodiazepines Scrn Negative (Negative) Urine Cocaine Screen Negative (Negative) U Marijuana (THC) Screen Positive H (Negative) Ethyl Alcohol ( - 10) mg/dL SARS-CoV-2 (PCR) (Negative) Urine Dip Bedside Urine Glucose Negative Bedside Urine Bilirubin - Negative Bedside Urine Ketone - Negative Urine Specific [place] 1.010 Bedside Urine Occult Blood - Negative Bedside Urine pH 6.5 Bedside Urine Protein - Negative Bedside Urine Urobilinogen - Negative Bedside Urine Nitrite - Negative Bedside Urine Leukocytes - Negative Esterase Imaging Data CT scan - head: Radiologist's Impression: No acute intracranial process CT scan - chest: Radiologist's Impression: No pulmonary embolism or other acute process CT scan - abdomen/pelvis: Radiologist's Impression: Nonobstructing left-sided nephrolithiasis MDM Narrative Medical decision making narrative: Multiple diagnoses considered in this patient reporting near-syncope versus brief syncope including arrhythmia versus pacemaker malfunction but thought unlikely as his pacemaker was interrogated and no abnormal rhythms were noted. Pulmonary embolism considered but thought unlikely given lack of findings on CTA. Myocardial infarction considered but thought unlikely given lack of ischemic findings on EKG and negative troponin x2. Other electrolyte abnormality or anemia considered but thought unlikely given lack of significant findings and labs. Orthostatics normal, patient asymptomatic and ambulatory in the department. Patient given return precautions and questions answered to his apparent satisfaction Discharge Plan Departure Patient Disposition: Home Clinical Impression: Syncope, near Instructions: DI for Syncope in Adults (Fainting) Activity Restrictions/Additional Instructions: *You have been diagnosed with [fainting. Your physical exam, EKG, labs and CTs are very reassuring ] *What to do: *Please continue to take your regular medications as directed. [ ] New medication prescriptions sent to your pharmacy: [ ] [ ] New medication written as a paper prescription [x ] No new medications given *Please follow up with your primary care provider in 2-3 days, call for an appointment. Let them know you were seen in the Emergency Department and that we ask that you be seen in follow up. We will electronically transmit a record of today's note if your PCP is in our system *If you do not have a primary care provider please contact the [facility] Resource line at [phone]. They will ask some questions about your medical history and help get you set up with a doctor in the community. *Return to Emergency Department if you should have any new, worsening or concerning symptoms, such as [fever greater than 101 F, shaking chills, worsening pain, persistent vomiting or other bothersome symptoms] Prescriptions: No Action carvedilol 6.25 mg tablet 6.25 mg PO BID RF: 0 lisinopril 5 mg tablet 5 mg PO DAILY RF: 0 amoxicillin-pot clavulanate [Augmentin] 875-125 mg tablet 1 tab PO BID Qty: 20 RF: 0 Eliquis 5 mg tablet 5 mg PO ONCE RF: 0 Referrals: Danis Looney MD [Primary Care Provider] -
--- NOTE | 2021-03-28 01:43 | DI.CT.S_ITS ---
PROCEDURE: CT ANGIO CHEST PE PROTOCOL INDICATIONS: syncope, known IJ thrombus TECHNIQUE: After the administration of intravenous contrast, 2 mm thick sections acquired from the pulmonary apices to the posterior costophrenic angles. 3-dimensional maximum intensity projection (MIP) coronal and sagittal reformats were then acquired through the thorax. For radiation dose reduction, the following was used: automated exposure control, adjustment of mA and/or kV according to patient size. COMPARISON: [facility], CT, CT ANGIO CHEST PE, 01/28/2018, 21:23. [facility], CT, CT ANGIO CHEST PE, 02/23/2021, 13:57. FINDINGS: Image quality: Excellent. Pulmonary arteries: Pulmonary arteries are normal in size, and demonstrate no intraluminal filling defects to suggest central pulmonary embolism. Lungs and pleura: Lungs are clear. No pleural effusions or pneumothorax. Central and peripheral airways are patent. Mediastinum: Heart size is normal, without pericardial effusion. No mediastinal or hilar adenopathy. Thoracic aorta is normal in caliber and enhancement. Esophagus is normal in caliber, without hiatal hernia. Bones and chest wall: No suspicious bony lesions. Ribs and thoracic spine appear intact throughout. Thyroid gland is normal. No axillary or supraclavicular adenopathy. Abdomen: Visualized upper abdominal solid organs appear normal in the early arterial phase of enhancement. IMPRESSION: 1. No evidence for pulmonary embolism. 2. A 5 mm nodule in the right middle lobe (series 9, image 133). Recommend a follow-up CT. Please see enclosed follow-up recommendation. Fleischner Society criteria for SOLID lung nodule followup. Nodule size (mm)Low-risk patientHigh-risk patient?4No follow-up neededFollow-up at 12 mo; if no change, no further follow-up>8-1Ujocav-ov CT at 12 mo; if no change, no further follow-up needed.Initial follow-up CT at 6-12 mo, then 18-24 mo if no change. >6-8Initial follow-up CT at 6-12 mo, then 18-24 mo if no change. Initial follow-up CT at 3-6 mo, then 9-12 mo and 24 mo if no change. >8Follow-up CT at 3, 9, 24 mo. Or PET and/or biopsy.Same as for low-risk pts. No significant discrepancy with the neon sign installer radiology preliminary report. Dictated by: Steve Gutierres M.D. on 03/28/2021 at 7:28 Approved by: Steve Gutierres M.D. on 03/28/2021 at 7:32
--- NOTE | 2021-03-28 01:43 | DI.CT.S_ITS ---
PROCEDURE: CT HEAD/BRAIN WO CON INDICATIONS: near syncope, known IJ thrombus TECHNIQUE: Noncontrast 4.5 mm thick angled axial sections acquired from the foramen magnum to the vertex, with coronal and sagittal reformats. For radiation dose reduction, the following was used: automated exposure control, adjustment of mA and/or kV according to patient size. COMPARISON: None. FINDINGS: Image quality: Excellent. CSF spaces: Basal cisterns are patent. No extra-axial fluid collections. The ventricles are symmetric in size and shape. Brain: No intracranial bleeds or masses. There is cerebral volume loss for age, with resultant ventricular and sulcal prominence. There are periventricular and deep white matter chronic small vessel ischemic changes. There is intracranial internal carotid artery atherosclerosis. Skull and face: Calvarium and visualized facial bones appear intact, without suspicious lesions. Sinuses: Visualized sinuses and mastoids are clear. IMPRESSION: No acute intracranial disease process. Dictated by: Svetlana Hernandez MD, PhD on 03/28/2021 at 7:23 Approved by: Svetlana Hernandez MD, PhD on 03/28/2021 at 7:24
--- NOTE | 2021-03-28 01:44 | DI.CT.S_ITS ---
PROCEDURE: CT ABDOMEN PELVIS W CON INDICATIONS: syncope, per PCP TECHNIQUE: After the administration of intravenous contrast, axial sections acquired from the lung bases to the pubic symphysis. Coronal and sagittal reformats were performed. For radiation dose reduction, the following was used: automated exposure control, adjustment of mA and/or kV according to patient size. COMPARISON: [facility], CT, CT ANGIO CHEST PE PROTOCOL, 03/28/2021, 1:49. FINDINGS: Image quality: Excellent. Lung bases: Bibasilar dependent atelectasis. Small hiatal hernia. Heart: Heart size is normal. There is a cardiac pacemaker. ABDOMEN: Liver: Liver is normal in size. Mild hepatic steatosis.. Gallbladder: Unremarkable. Biliary ducts: Unremarkable. Pancreas: Unremarkable. Spleen: Unremarkable. Adrenal Glands: Left adrenal thickening. No discrete adrenal mass. Kidneys and Ureters: There is a 5 x 10 mm nonobstructive stone in the inferior pole of the left kidney. No hydronephrosis. Stomach and Bowel: Stomach, small bowel loops, and colon are normal in caliber. Peritoneum: No abnormal intraperitoneal fluid. No free air. Ventral Wall: No hernias. Abdominal Nodes: No retroperitoneal or mesenteric adenopathy by size criteria. Vessels: Aorta and inferior vena cava are normal in size. PELVIS: Pelvic Organs: Prostate is enlarged. Bladder: Unremarkable. Pelvic Nodes: No enlarged lymph nodes. Miscellaneous: No hernias are seen. Bones: Unremarkable. IMPRESSION: 1. A 5 x 10 mm nonobstructive stone in the inferior pole of the left kidney. No hydronephrosis. No significant discrepancy with the stitcher operator radiology preliminary report. Dictated by: Steve Gutierres M.D. on 03/28/2021 at 7:38 Approved by: Steve Gutierres M.D. on 03/28/2021 at 7:42
[2021-03-28 02:05] LABS: Add Manual Diff / Slide Review NO; Basophils Absolute Auto 100 /uL (0-100); Basophils Percent Auto 1.2 % (0-2); Eosinophils Absolute Auto 400 /uL (0-450); Eosinophils Percent Auto 3.5 % (2-4); Hematocrit 46.5 % (41-53); Hemoglobin 15.3 g/dL (13.5-17.5); Lymphocytes Absolute Auto 2700 /uL (1100-4500); Mean Corpuscular HGB Conc 32.8 % (30-36); Mean Corpuscular Hemoglobin 28.9 PG (26-34); Mean Corpuscular Volume 87.9 fL (80-100); Monocytes Absolute Auto 900 /uL (0-900); Monocytes Percent Auto 7.5 % (3-14); Neutrophils Absolute Auto 8200 /uL (1500-7000); Neutrophils Percent Auto 65.8 % (50-75); Platelet Count 261 X10^3/uL (150-400); Red Blood Cell Count 5.29 X10^6/uL (4.5-5.9); Red Cell Distribution Width 13.1 % (11.6-14.8); White Blood Cell Count 12.5 X10^3/uL (4.5-11.0)
[2021-03-28] MEDS: SODIUM CHLORIDE 0.9% 1,000 ML 125 ML IV (02:06)
[2021-03-28 02:09] LABS: Alanine Aminotransferase 49 IU/L (<50); Albumin 4.2 g/dL (3.5-5.0); Albumin Globulin Ratio 1.3 (1.0-2.8); Alkaline Phosphatase 86 U/L (38-126); Aspartate Aminotransferase 41 IU/L (17-59); BUN Creatinine Ratio 21.7 (6-22); Bilirubin Total 0.5 mg/dL (0.2-1.3); Blood Urea Nitrogen 18 mg/dL (9-20); Calcium 9.8 mg/dL (8.4-10.2); Carbon Dioxide 26 mmol/L (22-32); Chloride 106 mmol/L (98-107); Creatine Kinase 80 U/L (55-170); Estimated Glomerular Filt Rate > 60.0 mL/min (>60); Ethanol (ETOH) < 10 mg/dL; Globulin 3.3 g/dL (1.7-4.1); Glucose 104 mg/dL (70-100); HEMOLYSIS < 15 (0-50); Potassium 3.7 mmol/L (3.4-5.1); Sodium 139 mmol/L (137-145); Total Protein 7.5 g/dL (6.3-8.2)
[2021-03-28 02:14] LABS: INR 1.1 (0.9-1.3); Prothrombin Time 12.2 SECONDS (10.1-12.7)
[2021-03-28 02:20] LABS: NT-proBNP (BNP-Adult 18+) 90 pg/mL (<125); Troponin I < 0.012 ng/mL (0.01-0.034)
[2021-03-28 02:56] LABS: COVID19 - ADMIT (NP swab/PCR) Negative (Negative)
[2021-03-28 04:07] LABS: Ur Creatinine Normal (Normal); Ur Specific Gravity Normal (Normal); Urine Cocaine Negative (Negative); Urine Tetrahydrocannabinol Positive (Negative); Urine pH Normal (Normal)
[2021-03-28 04:08] LABS: UR Morphine/Opiate cutoff 300 Negative (Negative); Urine Amphetamines Positive (Negative); Urine Barbiturates Negative (Negative); Urine Benzodiazepines Negative (Negative); Urine MDMA Negative (Negative); Urine Methadone Negative (Negative); Urine Methamphetamines Positive (Negative); Urine Oxycodone Negative (Negative); Urine Phencyclidine Negative (Negative); Urine Tricyclic Antidepressant Negative (Negative)
[2021-03-28 05:06] LABS: Troponin I < 0.012 ng/mL (0.01-0.034)
== END 2021-03-28 05:29 | disposition home or self-care (01) ==
PROVIDERS: Emergency Provider Emergency Medicine; PCP Family Medicine
DX: R55 Syncope and collapse (principal); Z20.822 Contact with and (suspected) exposure to COVID-19; Z95.0 Presence of cardiac pacemaker
CPT/HCPCS: 36415; 70450; 71275; 74177; 80053; 80305; 80320; 81003; 82550; 83735; 83880; 84484; 85025; 85610; 87635; 93005; 93010; 96360; 96361; 99284; C9803; Q9967

== ENCOUNTER → 2021-04-01 09:20 | Outpatient (CLI) | payer OTHER, MEDICAID, SELFPAY ==
[2018-01-13 18:36] VITALS: BMI 27.5
== END ==
PROVIDERS: PCP Family Medicine; Referring Provider Internal Medicine Medical Oncology; Visit Provider Internal Medicine Medical Oncology
DX: R97.20 Elevated prostate specific antigen [PSA] (principal); Z53.8 Procedure and treatment not carried out for other reasons

== ENCOUNTER → 2021-05-08 09:54 | Outpatient (CLI) | payer OTHER, MEDICAID, SELFPAY ==
[2018-01-13 18:36] VITALS: BMI 27.5
--- NOTE | 2021-05-08 09:56 | DI.RAD.S_ITS ---
PROCEDURE: XR KUB INDICATIONS: History of kidney stones TECHNIQUE: One view of the abdomen acquired. COMPARISON: [facility], CT, CT ABDOMEN PELVIS W CON, 03/28/2021, 1:49. FINDINGS: Surgical changes and devices: None. Bowel: Bowel gas pattern is normal. Soft tissues: Left kidney stone measuring 0.6 cm is unchanged. No suspicious abdominal calcifications. Visualized solid organ contours appear normal in size. Bones: No suspicious bony lesions. IMPRESSION: Small left kidney stone appears unchanged. Dictated by: Karthik Ansari M.D. on 05/08/2021 at 10:32 Approved by: Karthik Ansari M.D. on 05/08/2021 at 10:34
== END ==
PROVIDERS: PCP Family Medicine; Referring Provider Urology; Visit Provider Urology
DX: N20.0 Calculus of kidney (principal); Z87.442 Personal history of urinary calculi; R97.20 Elevated prostate specific antigen [PSA]; Z79.01 Long term (current) use of anticoagulants; I82.C12 Acute embolism and thrombosis of left internal jugular vein; Z95.810 Presence of automatic (implantable) cardiac defibrillator; N42.9 Disorder of prostate, unspecified; Z59.00 Homelessness unspecified; Z68.30 Body mass index [BMI] 30.0-30.9, adult
CPT/HCPCS: 51798; 74018; 81002; 99215

== ENCOUNTER → 2022-09-02 15:17 | Outpatient (CLI) | payer OTHER, MEDICAID, SELFPAY ==
[2021-07-08 15:37] VITALS: BMI 27.5
== END ==
PROVIDERS: PCP Family Medicine; Visit Provider Nurse Practitioner Family
DX: L98.9 Disorder of the skin and subcutaneous tissue, unspecified (principal)
CPT/HCPCS: 87070; 87075; 87077; 87147; 87205